=== PATIENT | female | born 1945 | race Caucasian/White ===

== ENCOUNTER → 2016-08-05 | Outpatient (CLI) | payer OTHER, MEDICARE ==
[~2016-08-05] MED LIST: ANSHCCR RE; ARTIOIN2 OPB; BCTCR/30 EXT; BCTROWC NAE; CETI10TA73 PO; CHOL20005 PO; CLC100 PO; CYAN10005 PO; CYCL0.05 OP; CYCL0.052 OPB; FERR1TAB13 PO; FERR325T51 PO; FLUO0.0543 TOP; FURO40TA3 PO; GLC/500 PO; GLC5 PO; GLIP-197 PO; GLIP5TAB3 PO; LDXCR30 TOP; LOPE1TAB PO; LOPETAB PO; LSN5 PO; LSX20 PO; MULT-671 PO; NADO20TA PO; OMEP20CA9 PO; OXYC1CAP5 PO; OXYC1TAB3 PO; PRAM1CRE4 TOP; PSYL55.43 PO; SALI0.657 NAE; VITA400C15 PO; VITAMIN A OP; ZOLE5INJ IV; [UNRECOGNIZED DRUG - CODE] NAE; calcium PO
== END | disposition home or self-care (01) ==
LOC: C.MAMM 10:22
PROVIDERS: ATTEND Internal Medicine
DX: M81.0 Age-related osteoporosis without current pathological fracture (principal)

== ENCOUNTER → 2017-04-15 | Outpatient (CLI) | payer OTHER, MEDICARE ==
[~2017-04-15] MED LIST changes: -BCTROWC NAE; -CHOL20005 PO; -CYAN10005 PO; -MULT-671 PO; -OXYC1TAB3 PO; -PSYL55.43 PO; -VITA400C15 PO
--- NOTE | 2017-04-15 09:07 | DIAGNOSTIC IMAGING REPORT ---
ABDOMINAL ULTRASOUND, RIGHT UPPER QUADRANT HISTORY: Cirrhosis of liver. COMPARISON: Right upper quadrant ultrasound April 10, 2016. FINDINGS: Coarsening of hepatic echotexture and nodularity liver surface is indicative of cirrhosis. No suspicious hepatic lesions are identified by sonography. The common bile duct measures 7 mm in caliber following cholecystectomy. This is unchanged. A 1 cm cystic lesion within the pancreatic body is also unchanged from prior exam. There is no right hydronephrosis. IMPRESSION: 1. Cirrhosis. No hepatic lesions identified by sonography. 2. No change since prior exam of April 10, 2016. 3. Stable 1 cm cystic lesion within the pancreatic body. Electronically signed by: Fredy Jaquez M.D. 04/15/2017 9:06 AM Dictated Date/Time: 04/15/2017 8:54 AM
== END | disposition home or self-care (01) ==
LOC: C.ULTR 08:29
PROVIDERS: ATTEND Internal Medicine Gastroenterology
DX: K74.60 Unspecified cirrhosis of liver (principal); K86.9 Disease of pancreas, unspecified

== ENCOUNTER 2017-04-23 12:02 | Inpatient (IN) | payer OTHER, MEDICARE ==
[~2017-04-23] VITALS: Ht 149.9 cm; Wt 58.5 kg
[~2017-04-23 12:02] MED LIST changes: -BCTCR/30 EXT; -CYCL0.052 OPB; -FERR1TAB13 PO; -GLC5 PO; -LDXCR30 TOP; -LOPE1TAB PO; -LSX20 PO; -OXYC1CAP5 PO
[2017-04-23] MEDS ORDERED: LDXCR30 TOP (12:49)
[2017-04-23] MEDS ORDERED: LSX20 PO (12:49)
[2017-04-23] MEDS ORDERED: FERR1TAB13 PO (12:49)
[2017-04-23] MEDS ORDERED: BCTCR/30 EXT (12:49)
[2017-04-23] MEDS ORDERED: OXYC1CAP5 PO (12:49)
[2017-04-23] MEDS ORDERED: LOPE1TAB PO (12:49)
[2017-04-23] MEDS ORDERED: CYCL0.052 OPB (12:49)
[2017-04-23] MEDS ORDERED: GLC5 PO (12:49)
[2017-04-23] MEDS ORDERED: MoRPHine SULFATE 2 MG/ML CARP IV STA ×2 (13:16→15:23)
[2017-04-23] MEDS ORDERED: ONDANSETRON INJ 2 MG/ML 2 ML VIAL IV STA ×2 (13:16→15:23)
--- NOTE | 2017-04-23 14:32 | DIAGNOSTIC IMAGING REPORT ---
CT HEAD WITHOUT CONTRAST (CT) CLINICAL HISTORY: Head pain status post trauma COMPARISON STUDY: 02/23/2010 TECHNIQUE: Axial CT of the brain is performed from the vertex to the skull base. IV contrast was not administered for this examination. A dose lowering technique was utilized adhering to the principles of ALARA. CT DOSE: 638.56 mGycm FINDINGS: No intra or extra-axial mass lesions are visualized. There is no CT evidence of acute cortical infarction. There is no evidence of midline shift. There is no acute hemorrhage. No calvarial fractures are visualized. There are minor white matter hypodensities likely on a small vessel basis. There is no evidence of pathologic ventricular dilatation. There is opacification of the left maxillary sinus. Multiple ethmoid air cells are opacified on the left. There is a sphenoid sinus air-fluid level. There is opacification of the frontal sinuses. IMPRESSION: 1. Pansinus disease 2. No acute intracranial findings. No evidence of acute intracranial hemorrhage. Electronically signed by: Jim Correa M.D. 04/23/2017 2:31 PM Dictated Date/Time: 04/23/2017 2:30 PM
--- NOTE | 2017-04-23 14:46 | DIAGNOSTIC IMAGING REPORT ---
RIGHT KNEE 2 VIEWS CLINICAL HISTORY: Right knee pain status post trauma COMPARISON: None. DISCUSSION: The bones are osteopenic. There is a nondisplaced mildly comminuted patellar fracture. There is a large suprapatellar joint effusion. No tibial fibular or distal femoral fractures are visualized. IMPRESSION: Nondisplaced mildly comminuted patellar fracture. Large suprapatellar joint effusion. Electronically signed by: Jim Correa M.D. 04/23/2017 2:45 PM Dictated Date/Time: 04/23/2017 2:44 PM
--- NOTE | 2017-04-23 14:48 | DIAGNOSTIC IMAGING REPORT ---
FACIAL BONES-MXILLOFAC WITHOUT CLINICAL HISTORY: 71 years-old Female presenting with EVAL FOR TRAUMA. , Acute facial injury. COMPARISON STUDY: CT head of same day, CT maxillofacial 08/13/2012. TECHNIQUE: High-resolution CT scan of the facial bones is performed. Images are reviewed in the axial, sagittal, and coronal planes. IV contrast was not administered for this examination. A dose lowering technique was utilized adhering to the principles of ALARA. CT DOSE: 551.90 mGycm FINDINGS: The mastoid air cells and middle ear cavities are clear. Mild mucosal thickening is seen within the left maxillary sinus. The right maxillary sinus is nearly completely opacified and contains internal high attenuating material with septations. Opacified expanded left ethmoid air cells are seen measuring up to 2.3 x 1.3 cm. There is moderate ethmoid and severe frontal sinus disease. Moderate to severe sphenoid sinus disease is noted with a large air-fluid level of the left sphenoid. Mild mucosal thickening involves the bilateral sphenoethmoidal recesses. There is moderate mucosal thickening of the left frontoethmoidal recess with mild mucosal thickening on the right. Moderate mucosal thickening involves the right maxillary ostiomeatal unit and the left is patent. No Caleb cell or large lalo bullosa identified. No significant nasal septal deviation. Nasopharynx is patent. The airway is patent. Image intracranial structures demonstrate no acute abnormality. There is background cerebral atrophy. There is multilevel advanced intervertebral disc space narrowing and facet arthropathy of the cervical spine is noted. Moderate degenerative changes involve the temporal mandibular joints. The zygomatic arches, maxillary alfonso, pterygoid plates, nasal bone and orbits are intact without acute fracture. Mandible is intact. No acute facial bone fracture or dislocation identified. No significant soft tissue swelling of the face. IMPRESSION: 1. No acute facial bone fracture or dislocation identified. 2. Multifocal sinus disease as above with severe right maxillary and bilateral frontal sinus opacification. High attenuating material with linear septations within the right maxillary sinus suggests inspissated mucosal debris. 3. Multilevel degenerative changes of the cervical spine. The above report was generated using voice recognition software. It may contain grammatical, syntax or spelling errors. Electronically signed by: Kennedy Mary M.D. 04/23/2017 2:46 PM Dictated Date/Time: 04/23/2017 2:38 PM
--- NOTE | 2017-04-23 15:15 | EMERGENCY ROOM VISIT NOTE ---
History Report prepared by Myra: Karyn Albert Under the Supervision of: Dr. Arpan Hamilton M.D. 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 She tripped on the rug and fell forward landing on her face and her right knee and elbow. She fell onto carpet. She was not feeling dizzy or sick before she fell. She initially had a nosebleed, which resolved after a few minutes. The patient has been unable to bear weight on her right leg since the fall. She is complaining of right knee pain that is worsened with any movement. She rates her pain as a 10/10 in severity. The patient denies headache, fevers, visual changes, dental pain, neck pain, back pain, chest pain, shortness of breath, and abdominal pain. She does not take any blood thinners. 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 Pt denies visual changes, dental pain. Review of Systems See HPI for pertinent positives & negatives. A total of 10 systems reviewed and were otherwise negative. Past Medical & Surgical Medical Problems: (1) Acute posterior epistaxis (2) Aortic Valve Disorder (3) Bladder Neoplasm Nos (4) Diabetes (5) Epistaxis (6) Epistaxis (7) Epistaxis (8) Epistaxis (9) Epistaxis (10) Esophageal Reflux (11) Fracture of fifth metacarpal bone (12) Hyperlipidemia Nec/Nos (13) Hypertension (14) Hypertension Nos (15) Osteoporosis Nos (16) Pansinusitis (17) Tricuspid Valve Disease Surgical Problems: (1) History of shoulder replacement (2) Knee Joint Replacement Status (3) Previous back surgery Old medical records were reviewed. Nurse's notes were reviewed and I agree with. Family History Diabetes mellitus FH: bladder cancer FH: heart disease Social History Smoking Status: Never Smoker Alcohol Use: none Marital Status: single Housing Status: lives alone Occupation Status: retired Current/Historical Medications Scheduled Artificial Tear Ointment (Refresh Lacri-Lube), 1 DOSE OPB Q2H Cyclosporine (Ophth) (Restasis), 1 DROP OPB Q12 Ferrous Sulfate (Kp Ferrous Sulfate), 325 MG PO TID Fluocinonide (Lidex 0.05% Cream), 1 APPLN TOP DIRECTED Furosemide (Furosemide), 20 MG PO DAILY Glipizide (Glipizide), 5 MG PO BID Lisinopril (Lisinopril), 5 MG PO QAM Loperamide-Simethicone (Imodium Multi-Symptom Rel), 1 TAB PO HS Metformin Hcl (Glucophage), 500 MG PO BID Mupirocin 2% (Bactroban 2%), 1 APPLN EXT BID Nadolol (Corgard), 20 MG PO QAM Omeprazole (Prilosec), 20 MG PO QAM Scheduled PRN Oxycodone Hcl (Oxycodone Hcl), 5 MG PO Q4H PRN for Pain Pramoxine Hcl-Zinc Oxide (Tronolane), 1 APPLN TOP DAILY PRN for Hemorrhoids Allergies Coded Allergies: Doxycycline (Verified Allergy, Intermediate, RASH, 04/11/17) Tetracycline (Verified Allergy, Intermediate, RASH, 04/11/17) Iodine (Verified Allergy, Unknown, Unknown rxn, 04/11/17) Physical Exam Vital Signs Date Time Temp Pulse Resp B/P (MAP) Pulse Ox O2 Delivery O2 Flow Rate FiO2 04/23/17 18:00 69 17 144/69 95 Room Air 04/23/17 17:00 72 151/78 92 Room Air 04/23/17 16:30 71 18 176/113 92 Room Air 04/23/17 15:30 73 15 188/123 96 Room Air 04/23/17 14:55 72 18 180/101 94 Room Air 04/23/17 14:00 71 14 167/85 96 Room Air 04/23/17 13:30 73 17 183/97 97 Room Air 04/23/17 12:30 73 18 167/103 96 Room Air 04/23/17 12:23 73 19 171/92 96 Room Air 04/23/17 12:09 36.7 72 16 179/71 97 Room Air Physical Exam General: Well developed well nourished non ill appearing older female in no acute distress, breathing comfortably on room air. Normal speech HEENT: Normal cephalic, abrasion to her chin and lip, mid-face is stable. Pupils are equal round and reactive to light. Extraocular movements are intact. Oropharynx is pink with moist mucous membranes. No swelling of the mouth lips or tongue. Neck: Supple with a midline trachea. No meningeal signs or stiffness, no JVD or bruits. No Stridor. Chest: Clear to auscultation bilaterally. No wheezes or rhonchi. No increased work of breathing. Heart: regular rate and rhythm. Abdomen: Soft nontender, nondistended without rebound guarding or rigidity. Extremities: Small abrasion on right elbow. Large amount of swelling to the right knee, worsens with any movement. Spine/Back. Non tender to palpation. No CVA tenderness Skin: Good turgor without rashes. Neurologic exam: Cranial nerves two through 12 are intact. Motor and sensation are intact and symmetrical throughout. Medical Decision & Procedures ER Provider Diagnostic Interpretation: Radiology results as stated below per my review and radiologist interpretation: FACIAL BONES-MXILLOFAC WITHOUT CLINICAL HISTORY: 71 years-old Female presenting with EVAL FOR TRAUMA. , Acute facial injury. COMPARISON STUDY: CT head of same day, CT maxillofacial 08/13/2012. TECHNIQUE: High-resolution CT scan of the facial bones is performed. Images are reviewed in the axial, sagittal, and coronal planes. IV contrast was not administered for this examination. A dose lowering technique was utilized adhering to the principles of ALARA. CT DOSE: 551.90 mGycm FINDINGS: The mastoid air cells and middle ear cavities are clear. Mild mucosal thickening is seen within the left maxillary sinus. The right maxillary sinus is nearly completely opacified and contains internal high attenuating material with septations. Opacified expanded left ethmoid air cells are seen measuring up to 2.3 x 1.3 cm. There is moderate ethmoid and severe frontal sinus disease. Moderate to severe sphenoid sinus disease is noted with a large air-fluid level of the left sphenoid. Mild mucosal thickening involves the bilateral sphenoethmoidal recesses. There is moderate mucosal thickening of the left frontoethmoidal recess with mild mucosal thickening on the right. Moderate mucosal thickening involves the right maxillary ostiomeatal unit and the left is patent. No Caleb cell or large lalo bullosa identified. No significant nasal septal deviation. Nasopharynx is patent. The airway is patent. Image intracranial structures demonstrate no acute abnormality. There is background cerebral atrophy. There is multilevel advanced intervertebral disc space narrowing and facet arthropathy of the cervical spine is noted. Moderate degenerative changes involve the temporal mandibular joints. The zygomatic arches, maxillary alfonso, pterygoid plates, nasal bone and orbits are intact without acute fracture. Mandible is intact. No acute facial bone fracture or dislocation identified. No significant soft tissue swelling of the face. IMPRESSION: 1. No acute facial bone fracture or dislocation identified. 2. Multifocal sinus disease as above with severe right maxillary and bilateral frontal sinus opacification. High attenuating material with linear septations within the right maxillary sinus suggests inspissated mucosal debris. 3. Multilevel degenerative changes of the cervical spine. The above report was generated using voice recognition software. It may contain grammatical, syntax or spelling errors. Electronically signed by: Kennedy Mary M.D. 04/23/2017 2:46 PM Dictated Date/Time: 04/23/2017 2:38 PM RIGHT KNEE 2 VIEWS CLINICAL HISTORY: Right knee pain status post trauma COMPARISON: None. DISCUSSION: The bones are osteopenic. There is a nondisplaced mildly comminuted patellar fracture. There is a large suprapatellar joint effusion. No tibial fibular or distal femoral fractures are visualized. IMPRESSION: Nondisplaced mildly comminuted patellar fracture. Large suprapatellar joint effusion. Electronically signed by: Jim Correa M.D. 04/23/2017 2:45 PM Dictated Date/Time: 04/23/2017 2:[address] HEAD WITHOUT CONTRAST (CT) CLINICAL HISTORY: Head pain status post trauma COMPARISON STUDY: 02/23/2010 TECHNIQUE: Axial CT of the brain is performed from the vertex to the skull base. IV contrast was not administered for this examination. A dose lowering technique was utilized adhering to the principles of ALARA. CT DOSE: 638.56 mGycm FINDINGS: No intra or extra-axial mass lesions are visualized. There is no CT evidence of acute cortical infarction. There is no evidence of midline shift. There is no acute hemorrhage. No calvarial fractures are visualized. There are minor white matter hypodensities likely on a small vessel basis. There is no evidence of pathologic ventricular dilatation. There is opacification of the left maxillary sinus. Multiple ethmoid air cells are opacified on the left. There is a sphenoid sinus air-fluid level. There is opacification of the frontal sinuses. IMPRESSION: 1. Pansinus disease 2. No acute intracranial findings. No evidence of acute intracranial hemorrhage. Electronically signed by: Jim Correa M.D. 04/23/2017 2:31 PM Dictated Date/Time: 04/23/2017 2:30 PM Laboratory Results 04/23/17 13:45 Red Blood Count 3.47, Mean Corpuscular Volume 94.5, Mean Corpuscular Hemoglobin 33.1, Mean Corpuscular Hemoglobin Concent 35.1, Mean Platelet Volume 11.5, Neutrophils (%) (Auto) 87.2, Lymphocytes (%) (Auto) 6.2, Monocytes (%) (Auto) 5.3, Eosinophils (%) (Auto) 0.6, Basophils (%) (Auto) 0.4, Neutrophils # (Auto) 5.93, Lymphocytes # (Auto) 0.42, Monocytes # (Auto) 0.36, Eosinophils # (Auto) 0.04, Basophils # (Auto) 0.03 04/23/17 13:45 Test 04/23/17 13:45 White Blood Count 6.80 K/uL (4.8-10.8) Red Blood Count 3.47 M/uL (4.2-5.4) Hemoglobin 11.5 g/dL (12.0-16.0) Hematocrit 32.8 % (37-47) Mean Corpuscular Volume 94.5 fL (80-100) Mean Corpuscular Hemoglobin 33.1 pg (25-34) Mean Corpuscular Hemoglobin Concent 35.1 g/dl (32-36) Platelet Count 137 K/uL (130-400) Mean Platelet Volume 11.5 fL (7.4-10.4) Neutrophils (%) (Auto) 87.2 % Lymphocytes (%) (Auto) 6.2 % Monocytes (%) (Auto) 5.3 % Eosinophils (%) (Auto) 0.6 % Basophils (%) (Auto) 0.4 % Neutrophils # (Auto) 5.93 K/uL (1.4-6.5) Lymphocytes # (Auto) 0.42 K/uL (1.2-3.4) Monocytes # (Auto) 0.36 K/uL (0.11-0.59) Eosinophils # (Auto) 0.04 K/uL (0-0.5) Basophils # (Auto) 0.03 K/uL (0-0.2) RDW Standard Deviation 52.9 fL (36.4-46.3) RDW Coefficient of Variation 15.5 % (11.5-14.5) Immature Granulocyte % (Auto) 0.3 % Immature Granulocyte # (Auto) 0.02 K/uL (0.00-0.02) Anion Gap 8.0 mmol/L (3-11) Est Creatinine Clear Calc Drug Dose 52.7 ml/min Estimated GFR () 93.2 Estimated GFR (Non- 80.4 BUN/Creatinine Ratio 20.2 (10-20) Calcium Level 8.9 mg/dl (8.5-10.1) Total Bilirubin 0.9 mg/dl (0.2-1) Direct Bilirubin 0.2 mg/dl (0-0.2) Aspartate Amino Transf (AST/SGOT) 38 U/L (15-37) Alanine Aminotransferase (ALT/SGPT) 27 U/L (12-78) Alkaline Phosphatase 96 U/L (45-117) Total Protein 8.8 gm/dl (6.4-8.2) Albumin 3.0 gm/dl (3.4-5.0) Lipase 223 U/L (73-393) Laboratory studies as stated above per my review. Medications Administered Medications (Trade) Dose Ordered Sig/Carlos Route Start Time Stop Time Status Last Admin Dose Admin Ondansetron HCl (Zofran Inj) 4 mg NOW STAT IV 04/23/17 13:16 04/23/17 13:19 DC 04/23/17 13:50 4 MG Morphine Sulfate (MoRPHine SULFATE INJ) 2 mg NOW STAT IV 04/23/17 13:16 04/23/17 13:19 DC 04/23/17 13:51 2 MG Ondansetron HCl (Zofran Inj) 4 mg NOW STAT IV 04/23/17 15:23 04/23/17 15:25 DC 04/23/17 15:35 4 MG Morphine Sulfate (MoRPHine SULFATE INJ) 2 mg NOW STAT IV 04/23/17 15:23 04/23/17 15:25 DC 04/23/17 15:35 2 MG ECG Indication: other Rate (beats per minute): 71 Rhythm: normal sinus Findings: no acute ischemic change, no ectopy, other (poor R-wave progression) Comparison ECG Date: 08/07/2011 Change: no significant change ED Course 1302: Past medical records reviewed. The patient was evaluated in room C7, and a complete history and physical examination were performed. 1316: Morphine sulfate 2 mg IV, Zofran 4 mg IV 1522: I reassessed the patient at this time. She is still having pain. I discussed the results and treatment plan with the patient and her son. I answered all pertaining questions that they had. They expressed understanding and verbalized agreement. 1523: Morphine sulfate 2 mg IV, Zofran 4 mg IV 1539: I spoke with Dr. Lagos of orthopedics regarding the patient's treatment plan. He recommended a knee immobilizer. 1604: I spoke with Dr. Dolan. We discussed the patients case. The patient will be evaluated by the [facility] for further management. 1709: I reassessed the patient and she is doing well. Medical Decision Differential diagnoses includes fracture, closed head injury, facial fracture, orthopedic injury, electrolyte or metabolic abnormality. This patient comes in as described above. She was placed in room C7. She is here for treatment and evaluation of a fall. It sounds as a mechanical fall. She tripped and landed on her knee. She also hit her face and head. She has a small abrasion right elbow. She has a normal neurologic exam. She is not on blood thinners. Blood work was obtained. She is diabetic but her blood sugar is only mildly elevated. Has no evidence suggest acute diabetic emergency. CAT scan of her head and face were unremarkable. She does have a comminuted nondisplaced right patellar fracture. She is a large hemarthrosis as well. A knee immobilizer was applied. While she was here , she received IV morphine and IV Zofran twice this seemed to help. I did discuss case with Dr. Lagos and he felt that most likely this is been be nonoperative but they could see her in the hospital in consultation. I don't think the patient can go home at this point as she is unable care for self with her acute patella/knee fracture. She is unable ambulate adequately She may need to stay in rehabilitation. I did consult Dr. Martini who saw her in the ER and will admit her for these measures. Medication Reconcilliation Current Medication List: was personally reviewed by me Blood Pressure Screening Patient's blood pressure: Elevated blood pressure Blood pressure disposition: Elevated BP felt to be situational Consults Time Called: 1536 Consulting Physician: Dr. Lagos Returned Call: [phone] Lagos of orthopedics regarding the patient's treatment plan. He recommended a knee immobilizer. Additional Consults: Time Called: 1601 Consulted Physician: Dr. Dolan Returned Call: [phone] Additional Comments: I spoke with Dr. Dolan. We discussed the patients case. The patient will be evaluated by the [facility] for further management. Impression Primary Impression: Patella fracture Additional Impressions: Facial contusion Closed head injury Scribe Attestation The scribe's documentation has been prepared under my direction and personally reviewed by me in its entirety. I confirm that the note above accurately reflects all work, treatment, procedures, and medical decision making performed by me. Departure Information Dispostion Being Evaluated By Hospitalist Referrals No Doctor, Assigned (PCP) Patient Instructions My [facility] Problem Qualifiers Primary Impression: Patella fracture Encounter type: initial encounter Fracture type: closed Laterality: right Additional Impressions: Facial contusion Encounter type: initial encounter Qualified Codes: S00.83XA - Contusion of other part of head, initial encounter Closed head injury Encounter type: initial encounter Qualified Codes: S09.90XA - Unspecified injury of head, initial encounter
[2017-04-23 16:25] LABS: BASO % 0.4 %; BASO ABS # 0.03 K/uL (0-0.2); COMPLETE YES; EOS % 0.6 %; HEMATOCRIT 32.8 % (37-47); IG% 0.3 %; LYMPH % 6.2 %; LYMPH ABS # 0.42 K/uL (1.2-3.4); MEAN CELL VOLUME 94.5 fL (80-100); MEAN CORPUSCULAR HEMOGLOBIN 33.1 pg (25-34); MEAN CORPUSCULAR HGB CONC 35.1 g/dl (32-36); MEAN PLATELET VOLUME 11.5 fL (7.4-10.4); MONO % 5.3 %; NEUT % 87.2 %; PLATELET COUNT 137 K/uL (130-400); RED BLOOD COUNT 3.47 M/uL (4.2-5.4)
[2017-04-23 16:34] LABS: BUN/CREATININE RATIO 20.2 (10-20); CALCIUM 8.9 mg/dl (8.5-10.1); CREATININE 0.74 mg/dl (0.60-1.20); POTASSIUM 4.8 mmol/L (3.5-5.1)
[2017-04-23] MEDS ORDERED: MoRPHine SULFATE 2 MG/ML CARP IV PRN (17:00)
[2017-04-23] MEDS ORDERED: ACETAMINOPHEN 325 MG TAB PO PRN (17:00)
--- NOTE | 2017-04-23 19:00 | History and Physical ---
History & Physical Date & Time of Service: Apr 23, 2017 at 19:00 Chief Complaint: Hurt Rt Knee, Bloody Mouth Primary Care Physician: Rafal Steinberg MD History of Present Illness Source: patient, family The patient is a 71-year-old female presents to the emergency department with complaint of right knee pain after a fall that occurred about 1-1/2 hours prior to arrival. The fall occurred after she tripped on a rug and fell forward, landing on a carpet and hitting her face, her right knee and right elbow. She had a transient nosebleed resolved after a few minutes. She has not been able to bear weight on her right leg since the fall. Past Medical/Surgical History Medical Problems: (1) Acute posterior epistaxis Status: Resolved (2) Aortic Valve Disorder Status: Chronic (3) Bladder Neoplasm Nos Status: Resolved (4) Diabetes Status: Chronic (5) Epistaxis Status: Resolved (6) Epistaxis Status: Resolved (7) Epistaxis Status: Resolved (8) Epistaxis Status: Resolved (9) Epistaxis Status: Resolved (10) Fracture of fifth metacarpal bone Status: Resolved (11) Hyperlipidemia Nec/Nos Status: Chronic (12) Hypertension Status: Chronic (13) Tricuspid Valve Disease Status: Chronic Surgical Problems: (1) History of shoulder replacement Status: Resolved (2) Previous back surgery Status: Resolved Family History Diabetes mellitus FH: bladder cancer FH: heart disease Social History Smoking Status: Never Smoker Smokeless Tobacco Use: No Alcohol Use: none Drug Use: none Marital Status: single Housing status: lives alone Occupational Status: retired Immunizations History of Influenza Vaccine: Yes Influenza Vaccine Date: Sep 27, 2009 History of Tetanus Vaccine?: No History of Pneumococcal: No Pneumococcal Date: Sep 27, 2009 History of Hepatitis B Vaccine: No Multi-Drug Resistant Organisms History of MDRO: No Allergies Coded Allergies: Doxycycline (Verified Allergy, Intermediate, RASH, 04/11/17) Tetracycline (Verified Allergy, Intermediate, RASH, 04/11/17) Iodine (Verified Allergy, Unknown, Unknown rxn, 04/11/17) Home Medications Scheduled Artificial Tear Ointment (Refresh Lacri-Lube), 1 DOSE OPB Q2H Cyclosporine (Ophth) (Restasis), 1 DROP OPB Q12 Ferrous Sulfate (Kp Ferrous Sulfate), 325 MG PO TID Fluocinonide (Lidex 0.05% Cream), 1 APPLN TOP DIRECTED Furosemide (Furosemide), 20 MG PO DAILY Glipizide (Glipizide), 5 MG PO BID Lisinopril (Lisinopril), 5 MG PO QAM Loperamide-Simethicone (Imodium Multi-Symptom Rel), 1 TAB PO HS Metformin Hcl (Glucophage), 500 MG PO BID Mupirocin 2% (Bactroban 2%), 1 APPLN EXT BID Nadolol (Corgard), 20 MG PO QAM Omeprazole (Prilosec), 20 MG PO QAM Scheduled PRN Oxycodone Hcl (Oxycodone Hcl), 5 MG PO Q4H PRN for Pain Pramoxine Hcl-Zinc Oxide (Tronolane), 1 APPLN TOP DAILY PRN for Hemorrhoids Review of Systems The patient denies chest pain, palpitations, shortness of breath, cough, lower extremity swelling, vision change, hearing change, fevers, chills, sweats, weight change, fatigue, nausea, vomiting, diarrhea or constipation, abdominal pain, pelvic pain, blood in urine or stool, dysuria, urinary frequency or urgency, lightheadedness, dizziness, headache, memory loss, rash, generalized arthralgias or myalgias, back or neck pain, night sweats, or allergy symptoms. The review of systems is otherwise negative other than for that already noted above, and at least 10 systems have been reviewed. Physical Exam Vital Signs Date Time Temp Pulse Resp B/P (MAP) Pulse Ox O2 Delivery O2 Flow Rate FiO2 04/23/17 18:00 69 17 144/69 95 Room Air 04/23/17 17:00 72 151/78 92 Room Air 04/23/17 16:30 71 18 176/113 92 Room Air 04/23/17 15:30 73 15 188/123 96 Room Air 04/23/17 14:55 72 18 180/101 94 Room Air 04/23/17 14:00 71 14 167/85 96 Room Air 04/23/17 13:30 73 17 183/97 97 Room Air 04/23/17 12:30 73 18 167/103 96 Room Air 04/23/17 12:23 73 19 171/92 96 Room Air 04/23/17 12:09 36.7 72 16 179/71 97 Room Air The patient is awake, well-developed and adequately nourished, alert and oriented 3, normocephalic and atraumatic, lying in bed and in no acute distress. HEENT--PERRL, EOMI, mucous membranes and oropharynx dry. Neck--supple, no JVD or bruits, thyroid normal, trachea midline, no adenopathy. Heart--normal S1 and S2, no extra beats, no murmurs, rubs or gallops. Lungs--clear bilaterally with good air movement, no respiratory distress, no accessory muscle use. Abdomen--normal bowel sounds and soft, nontender and nondistended, no hernias or masses, no organomegaly. Extremities--no cyanosis, clubbing or edema. There are good distal pulses b/l. Dermatologic--normal skin turgor, normal color, warm and dry, no abnormal lymph nodes, no rash. Neurologic--cranial nerves II through XII grossly intact. Rheumatologic--right leg in immobilizer. Psychiatric--normal affect. Diagnostics Laboratory Results Results Past 24 Hours Test 04/23/17 13:45 Range/Units White Blood Count 6.80 4.8-10.8 K/uL Red Blood Count 3.47 4.2-5.4 M/uL Hemoglobin 11.5 12.0-16.0 g/dL Hematocrit 32.8 37-47 % Mean Corpuscular Volume 94.5 80-100 fL Mean Corpuscular Hemoglobin 33.1 25-34 pg Mean Corpuscular Hemoglobin Concent 35.1 32-36 g/dl Platelet Count 137 130-400 K/uL Mean Platelet Volume 11.5 7.4-10.4 fL Neutrophils (%) (Auto) 87.2 % Lymphocytes (%) (Auto) 6.2 % Monocytes (%) (Auto) 5.3 % Eosinophils (%) (Auto) 0.6 % Basophils (%) (Auto) 0.4 % Neutrophils # (Auto) 5.93 1.4-6.5 K/uL Lymphocytes # (Auto) 0.42 1.2-3.4 K/uL Monocytes # (Auto) 0.36 0.11-0.59 K/uL Eosinophils # (Auto) 0.04 0-0.5 K/uL Basophils # (Auto) 0.03 0-0.2 K/uL RDW Standard Deviation 52.9 36.4-46.3 fL RDW Coefficient of Variation 15.5 11.5-14.5 % Immature Granulocyte % (Auto) 0.3 % Immature Granulocyte # (Auto) 0.02 0.00-0.02 K/uL Sodium Level 130 136-145 mmol/L Potassium Level 4.8 3.5-5.1 mmol/L Chloride Level 97 98-107 mmol/L Carbon Dioxide Level 25 21-32 mmol/L Anion Gap 8.0 3-11 mmol/L Blood Urea Nitrogen 15 7-18 mg/dl Creatinine 0.74 0.60-1.20 mg/dl Est Creatinine Clear Calc Drug Dose 52.7 ml/min Estimated GFR () 93.2 Estimated GFR (Non- 80.4 BUN/Creatinine Ratio 20.2 10-20 Random Glucose 132 70-99 mg/dl Calcium Level 8.9 8.5-10.1 mg/dl Total Bilirubin 0.9 0.2-1 mg/dl Direct Bilirubin 0.2 0-0.2 mg/dl Aspartate Amino Transf (AST/SGOT) 38 15-37 U/L Alanine Aminotransferase (ALT/SGPT) 27 12-78 U/L Alkaline Phosphatase 96 45-117 U/L Total Protein 8.8 6.4-8.2 gm/dl Albumin 3.0 3.4-5.0 gm/dl Lipase 223 73-393 U/L Diagnostic Radiology Patient Name: CANDI CORADO Unit Number: [id number] Dictated: 04/23/171437 Transcribed: 04/23/171437 [employer]visor Printed Date/Time: [~ rep prt dt]/[~ rep prt tm] [~ rep ct labl] - [~ rep ct ivnm] [facility] [place] [address] Dictated: 04/23/171437 Transcribed: 04/23/171437 [employer]visor Printed Date/Time: [~ rep prt dt]/[~ rep prt tm] [~ rep ct labl] - [~ rep ct ivnm] [~ rep ct add3]] FACIAL BONES-MXILLOFAC WITHOUT CLINICAL HISTORY: 71 years-old Female presenting with EVAL FOR TRAUMA. , Acute facial injury. COMPARISON STUDY: CT head of same day, CT maxillofacial 08/13/2012. TECHNIQUE: High-resolution CT scan of the facial bones is performed. Images are reviewed in the axial, sagittal, and coronal planes. IV contrast was not administered for this examination. A dose lowering technique was utilized adhering to the principles of ALARA. CT DOSE: 551.90 mGycm FINDINGS: The mastoid air cells and middle ear cavities are clear. Mild mucosal thickening is seen within the left maxillary sinus. The right maxillary sinus is nearly completely opacified and contains internal high attenuating material with septations. Opacified expanded left ethmoid air cells are seen measuring up to 2.3 x 1.3 cm. There is moderate ethmoid and severe frontal sinus disease. Moderate to severe sphenoid sinus disease is noted with a large air-fluid level of the left sphenoid. Mild mucosal thickening involves the bilateral sphenoethmoidal recesses. There is moderate mucosal thickening of the left frontoethmoidal recess with mild mucosal thickening on the right. Moderate mucosal thickening involves the right maxillary ostiomeatal unit and the left is patent. No Caleb cell or large lalo bullosa identified. No significant nasal septal deviation. Nasopharynx is patent. The airway is patent. Image intracranial structures demonstrate no acute abnormality. There is background cerebral atrophy. There is multilevel advanced intervertebral disc space narrowing and facet arthropathy of the cervical spine is noted. Moderate degenerative changes involve the temporal mandibular joints. The zygomatic arches, maxillary alfonso, pterygoid plates, nasal bone and orbits are intact without acute fracture. Mandible is intact. No acute facial bone fracture or dislocation identified. No significant soft tissue swelling of the face. IMPRESSION: 1. No acute facial bone fracture or dislocation identified. 2. Multifocal sinus disease as above with severe right maxillary and bilateral frontal sinus opacification. High attenuating material with linear septations within the right maxillary sinus suggests inspissated mucosal debris. 3. Multilevel degenerative changes of the cervical spine. The above report was generated using voice recognition software. It may contain grammatical, syntax or spelling errors. Electronically signed by: Kennedy Mary M.D. 04/23/2017 2:46 PM Dictated Date/Time: 04/23/2017 2:38 PM The status of this report is Signed. Draft = Not yet reviewed or approved by Radiologist. Signed = Reviewed and approved by Radiologist. <AttendingPhy></AttendingPhy> <FamilyPhy>Rafal Steinberg MD</FamilyPhy> < PrimaryPhy>Rafal Steinberg MD</PrimaryPhy> <UnitNumber>[id number]</UnitNumber > <VisitNumber>[id number]</VisitNumber> <PatientName>CANDI CORADO</ PatientName> <DateOfBirth>1945</DateOfBirth> <Location>[facility]</Location> < ServiceDate>04/23/17</ServiceDate> <MNE>ESINDI</MNE> <OrderingPhy>Arpan Hamilton M.D.</OrderingPhy> <OrderingPhyMNE>f rep ord dr ellis</OrderingPhyMNE> < DictatingPhyMNE>f rep dict dr ellis</DictatingPhyMNE> <CCListMNE>f rep ct mne</ CCListMNE> <AdmittingPhyMNE>f pt admit dr ellis</AdmittingPhyMNE> <AttendingPhyMNE >f pt attend dr ellis</AttendingPhyMNE> <ConsultingPhyMNE>f pt consult dr ellis</ConsultingPhyMNE> <FamilyPhyMNE>f pt fam dr ellis</FamilyPhyMNE> <OtherPhyMNE>f pt other dr ellis</OtherPhyMNE> < PrimaryPhyMNE>f pt prim care dr ellis</PrimaryPhyMNE> <ReferringPhyMNE>f pt referring dr ellis</ReferringPhyMNE> Patient Name: CANDI CORADO Unit Number: [id number] Dictated: 04/23/171443 Transcribed: 04/23/171443 ARG Printed Date/Time: [~ rep prt dt]/[~ rep prt tm] [~ rep ct labl] - [~ rep ct ivnm] [facility] [place] [address] Dictated: 04/23/171443 Transcribed: 04/23/171443 ARG Printed Date/Time: [~ rep prt dt]/[~ rep prt tm] [~ rep ct labl] - [~ rep ct ivnm] RIGHT KNEE 2 VIEWS CLINICAL HISTORY: Right knee pain status post trauma COMPARISON: None. DISCUSSION: The bones are osteopenic. There is a nondisplaced mildly comminuted patellar fracture. There is a large suprapatellar joint effusion. No tibial fibular or distal femoral fractures are visualized. IMPRESSION: Nondisplaced mildly comminuted patellar fracture. Large suprapatellar joint effusion. Electronically signed by: Jim Correa M.D. 04/23/2017 2:45 PM Dictated Date/Time: 04/23/2017 2:44 PM The status of this report is Signed. Draft = Not yet reviewed or approved by Radiologist. Signed = Reviewed and approved by Radiologist. <AttendingPhy></AttendingPhy> <FamilyPhy>Rafal Steinberg MD</FamilyPhy> < PrimaryPhy>Rafal Steinberg MD</PrimaryPhy> <UnitNumber>[id number]</UnitNumber > <VisitNumber>[id number]</VisitNumber> <PatientName>IRVIN CORADOLAZARO Hinojosa</ PatientName> <DateOfBirth>1945</DateOfBirth> <Location>[facility]</Location> < ServiceDate>04/23/17</ServiceDate> <MNE>ESINDI</MNE> <OrderingPhy>Arpan Hamilton M.D.</OrderingPhy> <OrderingPhyMNE>f rep ord dr ellis</OrderingPhyMNE> < DictatingPhyMNE>f rep dict dr ellis</DictatingPhyMNE> <CCListMNE>f rep ct mne</ CCListMNE> <AdmittingPhyMNE>f pt admit dr ellis</AdmittingPhyMNE> <AttendingPhyMNE >f pt attend dr ellis</AttendingPhyMNE> <ConsultingPhyMNE>f pt consult dr ellis</ConsultingPhyMNE> <FamilyPhyMNE>f pt fam dr ellis</FamilyPhyMNE> <OtherPhyMNE>f pt other dr ellis</OtherPhyMNE> < PrimaryPhyMNE>f pt prim care dr ellis</PrimaryPhyMNE> <ReferringPhyMNE>f pt referring dr ellis</ReferringPhyMNE> Patient Name: CANDI CORADO Unit Number: [id number] Dictated: 04/23/171429 Transcribed: 04/23/171429 ARG Printed Date/Time: [~ rep prt dt]/[~ rep prt tm] [~ rep ct labl] - [~ rep ct ivnm] [facility] [place] [address] Dictated: 04/23/171429 Transcribed: 04/23/171429 ARG Printed Date/Time: [~ rep prt dt]/[~ rep prt tm] [~ rep ct labl] - [~ rep ct ivnm] CT HEAD WITHOUT CONTRAST (CT) CLINICAL HISTORY: Head pain status post trauma COMPARISON STUDY: 02/23/2010 TECHNIQUE: Axial CT of the brain is performed from the vertex to the skull base. IV contrast was not administered for this examination. A dose lowering technique was utilized adhering to the principles of ALARA. CT DOSE: 638.56 mGycm FINDINGS: No intra or extra-axial mass lesions are visualized. There is no CT evidence of acute cortical infarction. There is no evidence of midline shift. There is no acute hemorrhage. No calvarial fractures are visualized. There are minor white matter hypodensities likely on a small vessel basis. There is no evidence of pathologic ventricular dilatation. There is opacification of the left maxillary sinus. Multiple ethmoid air cells are opacified on the left. There is a sphenoid sinus air-fluid level. There is opacification of the frontal sinuses. IMPRESSION: 1. Pansinus disease 2. No acute intracranial findings. No evidence of acute intracranial hemorrhage. Electronically signed by: Jim Correa M.D. 04/23/2017 2:31 PM Dictated Date/Time: 04/23/2017 2:30 PM The status of this report is Signed. Draft = Not yet reviewed or approved by Radiologist. Signed = Reviewed and approved by Radiologist. <AttendingPhy></AttendingPhy> <FamilyPhy>Rafal Steinberg MD</FamilyPhy> < PrimaryPhy>Rafal Steinberg MD</PrimaryPhy> <UnitNumber>[id number]</UnitNumber > <VisitNumber>[id number]</VisitNumber> <PatientName>CANDI CORADO</ PatientName> <DateOfBirth>1945</DateOfBirth> <Location>[facility]</Location> < ServiceDate>04/23/17</ServiceDate> <MNE>ESINDI</MNE> <OrderingPhy>Arpan Hamilton M.D.</OrderingPhy> <OrderingPhyMNE>f rep ord dr ellis</OrderingPhyMNE> < DictatingPhyMNE>f rep dict dr ellis</DictatingPhyMNE> <CCListMNE>f rep ct caleb</ CCListMNE> <AdmittingPhyMNE>f pt admit dr ellis</AdmittingPhyMNE> <AttendingPhyMNE >f pt attend dr ellis</AttendingPhyMNE> <ConsultingPhyMNE>f pt consult dr ellis</ConsultingPhyMNE> <FamilyPhyMNE>f pt fam dr ellis</FamilyPhyMNE> <OtherPhyMNE>f pt other dr ellis</OtherPhyMNE> < PrimaryPhyMNE>f pt prim care dr ellis</PrimaryPhyMNE> <ReferringPhyMNE>f pt referring dr ellis</ReferringPhyMNE> EKG EKG shows normal sinus rhythm at 71 bpm, possible old anteroseptal NC, no change compared to 08/07/2011 Impression Assessment and Plan Right nondisplaced comminuted patellar fracture/right knee effusion-- The patient will be admitted to the medical surgical floor with knee immobilizer. Consult orthopedics/PT/OT/executive secretary social welfare. Tylenol for mild pain, [place] for moderate pain, and morphine IV for severe pain Pansinusitis-- Placed on ceftriaxone 1 g IV daily and levofloxacin 500 mg IV daily. Hypertension-- Continue nadolol, lisinopril Hold furosemide. Diabetes mellitus-- Hold metformin. Reduce glipizide from 5 to 2.5 mg by mouth twice a day. Place on Accu-Cheks before meals and at bedtime with NovoLog coverage per scale. GERD-- Change omeprazole to pantoprazole. Next Dry eye-- Continue Restasis and refresh Lacri-Lube Level of Care Med/Surg Advanced Directives Existing Advance Directive: No Existing Living Will: No Existing Power of Planograph Operator: No Resuscitation Status FULL NO CARDIOVERSION VTE Prophylaxis VTE Risk Assessment Done? Y/N: Yes Risk Level: Moderate Given or contraindicated: Enoxaparin (Lovenox)SQ, SCD's
[2017-04-23 19:20] VITALS: BP 159/71; PULSE 69; TEMP 36.5; O2SAT 94; Ht 149.9 cm; Wt 58.5 kg
[2017-04-23 19:55] VITALS: O2SAT 94
[2017-04-23] MEDS: OXYCODONE HCL IR 5 MG TAB (IMMEDIATE RELEASE) PO PRN (20:14)
[2017-04-23] MEDS ORDERED: LOPERAMIDE PO SCH (21:00)
[2017-04-23] MEDS ORDERED: SIMETHICONE PO SCH (21:00)
[2017-04-23] MEDS: CEFTRIAXONE SOD INJ 1 GM in DEXTROSE 5% ADD-VANTAGE 50ML 50 ML IV SCH (21:13)
[2017-04-23] MEDS: GUAIFENESIN 600 MG TABCR PO SCH (21:13)
[2017-04-23] MEDS: LOPERAMIDE HCL 2 MG CAP PO SCH (21:13)
[2017-04-23] MEDS: MUPIROCIN 2% OINT 22 GM TUBE EXT SCH (21:54)
[2017-04-23] MEDS: SIMETHICONE 80 MG CHEW PO SCH (21:55)
[2017-04-23] MEDS: ENOXAPARIN 30 MG/0.3 ML SYR SQ SCH (22:01)
[2017-04-23] MEDS: LEVOFLOXACIN / D5W 500 MG in PREMIXED IN D5W 100 ML IV SCH (22:42)
[2017-04-23 22:48] VITALS: BP 161/75; PULSE 73; TEMP 36.4; O2SAT 95
[2017-04-24] MEDS: ONDANSETRON INJ 2 MG/ML 2 ML VIAL IV PRN ×4 (01:28→19:22)
[2017-04-24 06:56] VITALS: BP 173/75; PULSE 77; TEMP 36.3; O2SAT 96
[2017-04-24 08:00] VITALS: BP 168/76; PULSE 77
--- NOTE | 2017-04-24 08:24 | CONSULTATION REPORT ---
DATE OF CONSULTATION: 04/24/2017 REASON FOR CONSULT: Right patellar fracture. HISTORY OF PRESENT ILLNESS: The patient is a 71-year-old white female known to our practice who states that yesterday evening she was ambulating in her home and her shoe caught on the carpet and she lost her balance and fell straightforward. She states that she had pain in her knee and she also had hit her face on the ground as well. She denies losing consciousness. She denies any shortness of breath, chest pain or lightheadedness prior to or after the fall. She was brought to the emergency room where she was seen by the staff. X-rays were taken and it was found that she had a patellar fracture of the right patella. She was admitted by the [facility] and we have been asked to see her for patellar fracture. PAST MEDICAL HISTORY: Aortic valve disorder, history of bladder CA in the past, diabetes mellitus, hyperlipidemia, hypertension, history of epistaxis. PAST SURGICAL HISTORY: Hysterectomy, lumbar decompression surgery for bladder cancer. FAMILY HISTORY: Diabetes mellitus, bladder cancer and heart disease. SOCIAL HISTORY: The patient lives alone, is a nonsmoker and does not use alcohol. MEDICATIONS: Artificial tears tear ointment 1 dose OPB q. 2 hours, cyclosporine 1 drop OPB q.12 hours, ferrous sulfate 325 mg p.o. t.i.d., Lidex cream 1 application topically as directed, furosemide 20 mg p.o. daily, glipizide 5 mg p.o. b.i.d., lisinopril 5 mg p.o. q.a.m., Imodium 1 tab p.o. at bedtime, metformin 500 mg p.o. b.i.d., Bactroban 1 application externally b.i.d., nadolol 20 mg p.o. q.a.m., omeprazole 20 mg p.o. q.a.m., oxycodone 5 mg p.o. q. 4 hours p.r.n. and Tronolane 1 application topical daily p.r.n. for hemorrhoids. ALLERGIES: DOXYCYCLINE, IODINE AND TETRACYCLINE. REVIEW OF SYSTEMS: As per admitting history and physical. PHYSICAL EXAMINATION: GENERAL: The patient is a 71-year-old white female who appears her stated. She is pleasant and cooperative and in no acute distress, alert and oriented to person and place. EXTREMITIES: On examination of her right lower extremity an immobilizer has been placed on her right knee and is removed for exam. She has some mild swelling of the knee itself and there is no glaring step offs or deformity to the patella at this time. No overt areas of ecchymosis. She is tender on palpation over the patella itself. Joint effusion is noted likely due to fracture. She denies tenderness of the tibia going distally into the ankle and she has no hip pain at this point in time on the right lower extremity and is nontender over the femur itself. Left lower extremity is essentially benign and range of motion is within normal limits and is nontender. She has some decreased range of motion of the left shoulder due to DJD and right shoulder essentially within normal limits without discomfort. There is no gross motor or sensory loss of her extremities other than her knee due to effusion and fracture of the patella. ASSESSMENT: Right minimally displaced patellar fracture. PLAN: At this point in time we will put her in an immobilizer and leaver her in an immobilizer, weightbearing as tolerated. This is not a surgical issue at this time and she will be treated conservatively. She can be up weightbearing as tolerated with the immobilizer on. She may remove for bathing and while her leg is in full extension while at rest just to relieve her from the pressure of the immobilizer at times. She will likely need to use a walker for ambulation initially. The patient states that she is scheduled for shoulder surgery with Dr. Rosario in the near future which may have to be postponed due to use of walker. Plans will be to start her on PT and OT today to see how she ambulates. She can follow up with Dr. Rosario in 2 weeks in the office. Thank you for this consult. Please call with any questions.
[2017-04-24] MEDS: FERROUS SULFATE 325 MG TAB PO SCH ×3 (08:30→18:15)
[2017-04-24] MEDS: GUAIFENESIN 600 MG TABCR PO SCH ×2 (10:08→20:37)
[2017-04-24] MEDS: PANTOprazole SOD 40 MG TAB PO SCH (10:09)
[2017-04-24] MEDS: NADOLOL 40 MG TAB PO SCH (10:12)
[2017-04-24] MEDS: LISINOPRIL 5 MG TAB PO SCH (10:12)
[2017-04-24] MEDS: MUPIROCIN 2% OINT 22 GM TUBE EXT SCH ×2 (10:14→20:33)
[2017-04-24] MEDS: CycloSPORINE 0.05% 0.4 ML 30 UDV/BOX OP SCH ×2 (10:16→21:55)
[2017-04-24] MEDS: ENOXAPARIN 30 MG/0.3 ML SYR SQ SCH ×2 (10:18→20:39)
[2017-04-24 11:06] VITALS: BP 161/75; PULSE 78; TEMP 36.5; O2SAT 96
--- NOTE | 2017-04-24 12:52 | Hospitalist Progress Note ---
Hospitalist Progress Note Date of Service Apr 24, 2017. (Idania Ruiz ., PA-C) Subjective Pt evaluation today including: conversation w/ patient, physical exam, lab review, review of studies, review of inpatient medication list Voiding: no voiding problems Patient feeling nauseous this AM due to pain medications. IV Zofran given. Encouraged Tylenol vs narcotics for pain management. Knee pain is currently well controlled. Increases significantly with weightbearing. Fall was mechanical- her shoe caught on the rug and she tripped. States she is unable to bear weight at this time. Thinking she is going to need rehab as she lives alone and is having difficulty with ambulation. Eating and drinking OK. Patient denies any fever, chills, sweats, lightheadedness, dizziness, vision changes, CP, palpitations, edema, SOB, wheezing, cough, abdominal pain, vomiting , diarrhea, urinary symptoms, melena, numbness/tingling, weakness, anxiety/ depression, active bleeding, or new skin discoloration/changes. (Idania Ruiz ., PA-C) Medications Current Inpatient Medications Medications (Trade) Dose Ordered Sig/Carlos Route Start Time Stop Time Status Last Admin Dose Admin Enoxaparin Sodium (Lovenox Inj) 30 mg Q12 SQ 04/23/17 21:00 05/23/17 20:59 04/24/17 10:18 30 MG Acetaminophen (Tylenol Tab) 650 mg Q4H PRN PO 04/23/17 17:00 05/23/17 16:59 Lisinopril (Zestril Tab) 5 mg QAM PO 04/24/17 09:00 05/24/17 08:59 04/24/17 10:12 5 MG Nadolol (Corgard Tab) 20 mg QAM PO 04/24/17 09:00 05/24/17 08:59 04/24/17 10:12 20 MG Miscellaneous Information (Order Awaiting Action) 1 ea QS N/A 04/24/17 00:00 05/24/17 00:00 Ferrous Sulfate (Feosol Tab) 325 mg TIDM PO 04/24/17 08:30 05/24/17 08:29 Mupirocin (Bactroban 2% Oint) 1 appln BID EXT 04/23/17 21:00 05/23/17 20:59 04/24/17 10:14 1 APPLN Pantoprazole Sodium (Protonix Tab) 40 mg QAM PO 04/24/17 09:00 05/24/17 08:59 04/24/17 10:09 40 MG Morphine Sulfate (MoRPHine SULFATE INJ) 2 mg Q2H PRN IV 04/23/17 17:00 05/07/17 16:59 04/23/17 23:46 2 MG Glipizide (Glucotrol Tab) 2.5 mg BIDM PO 04/24/17 08:00 05/24/17 07:59 04/24/17 10:14 2.5 MG Oxycodone HCl (Roxicodone Immediate Rel Tab) 5 mg Q4H PRN PO 04/23/17 17:00 05/07/17 16:59 04/23/17 20:14 5 MG Ceftriaxone Sodium 1 gm/ Dextrose 50 ml @ 100 mls/hr DAILY@2000 IV 04/23/17 20:30 05/03/17 19:59 04/23/17 21:13 100 MLS/HR Levofloxacin 500 mg/Prmx 100 ml @ 100 mls/hr Q24H IV 04/23/17 22:00 05/03/17 21:59 04/23/17 22:42 100 MLS/HR Guaifenesin (Mucinex Contr Rel Tab) 600 mg Q12 PO 04/23/17 21:00 05/23/17 20:59 04/24/17 10:08 600 MG Loperamide HCl (Imodium Cap) 2 mg HS PO 04/23/17 21:00 05/23/17 20:59 04/23/17 21:13 2 MG Simethicone (Mylicon Chew Tab) 80 mg HS PO 04/23/17 21:00 05/23/17 20:59 04/23/17 21:55 80 MG Cyclosporine (Restasis) 1 drops Q12 OP 04/24/17 09:00 05/24/17 08:59 04/24/17 10:16 1 DROPS Ondansetron HCl (Zofran Inj) 4 mg Q4H PRN IV 04/24/17 00:45 05/24/17 00:44 04/24/17 08:12 4 MG Tramadol HCl (Ultram Tab) @ Q4H PRN PO 04/24/17 08:00 10/28/17 07:59 (Idania Ruiz PA-C) Objective Vital Signs Date Time Temp Pulse Resp B/P (MAP) Pulse Ox O2 Delivery O2 Flow Rate FiO2 04/24/17 11:06 36.5 78 18 161/75 (103) 96 Room Air 04/24/17 08:00 77 168/76 (106) 04/24/17 07:55 Room Air 04/24/17 06:56 36.3 77 19 173/75 (107) 96 Room Air 04/23/17 22:48 36.4 73 20 161/75 (103) 95 Room Air 04/23/17 19:55 94 Room Air 04/23/17 19:20 36.5 69 18 159/71 94 Room Air 04/23/17 18:00 69 17 144/69 95 Room Air 04/23/17 17:00 72 151/78 92 Room Air 04/23/17 16:30 71 18 176/113 92 Room Air 04/23/17 15:30 73 15 188/123 96 Room Air 04/23/17 14:55 72 18 180/101 94 Room Air 04/23/17 14:00 71 14 167/85 96 Room Air 04/23/17 13:30 73 17 183/97 97 Room Air (Idania Ruiz PA-C) Physical Exam General Appearance: no apparent distress Eyes: normal inspection, PERRL ENT: TMs normal Neck: supple Respiratory/Chest: lungs clear, no respiratory distress, no accessory muscle use Cardiovascular: regular rate, rhythm Abdomen: normal bowel sounds, non tender, soft Extremities: no pedal edema, no calf tenderness, + pertinent finding (R knee immoblizer) Neurologic/Psychiatric: alert, normal mood/affect, oriented x 3 Skin: normal color, warm/dry, no rash (Idania Ruiz, TREY-C) Laboratory Results Last 24 Hours Test 04/23/17 13:45 04/23/17 20:42 White Blood Count 6.80 K/uL Red Blood Count 3.47 M/uL Hemoglobin 11.5 g/dL Hematocrit 32.8 % Mean Corpuscular Volume 94.5 fL Mean Corpuscular Hemoglobin 33.1 pg Mean Corpuscular Hemoglobin Concent 35.1 g/dl Platelet Count 137 K/uL Mean Platelet Volume 11.5 fL Neutrophils (%) (Auto) 87.2 % Lymphocytes (%) (Auto) 6.2 % Monocytes (%) (Auto) 5.3 % Eosinophils (%) (Auto) 0.6 % Basophils (%) (Auto) 0.4 % Neutrophils # (Auto) 5.93 K/uL Lymphocytes # (Auto) 0.42 K/uL Monocytes # (Auto) 0.36 K/uL Eosinophils # (Auto) 0.04 K/uL Basophils # (Auto) 0.03 K/uL RDW Standard Deviation 52.9 fL RDW Coefficient of Variation 15.5 % Immature Granulocyte % (Auto) 0.3 % Immature Granulocyte # (Auto) 0.02 K/uL Sodium Level 130 mmol/L Potassium Level 4.8 mmol/L Chloride Level 97 mmol/L Carbon Dioxide Level 25 mmol/L Anion Gap 8.0 mmol/L Blood Urea Nitrogen 15 mg/dl Creatinine 0.74 mg/dl Est Creatinine Clear Calc Drug Dose 52.7 ml/min Estimated GFR () 93.2 Estimated GFR (Non- 80.4 BUN/Creatinine Ratio 20.2 Random Glucose 132 mg/dl Calcium Level 8.9 mg/dl Total Bilirubin 0.9 mg/dl Direct Bilirubin 0.2 mg/dl Aspartate Amino Transf (AST/SGOT) 38 U/L Alanine Aminotransferase (ALT/SGPT) 27 U/L Alkaline Phosphatase 96 U/L Total Protein 8.8 gm/dl Albumin 3.0 gm/dl Lipase 223 U/L Bedside Glucose 106 mg/dl (Idania Ruiz, PA-C) Assessment and Plan 71-year-old female presents to the emergency department with complaint of right knee pain after a fall that occurred about 1-1/2 hours prior to arrival. The fall occurred after she tripped on a rug and fell forward, landing on a carpet and hitting her face, her right knee and right elbow. She had a transient nosebleed resolved after a few minutes. She has not been able to bear weight on her right leg since the fall. Right nondisplaced comminuted patellar fracture/right knee effusion: - Admitted to med/surg - Tylenol for mild pain, [place] for moderate pain, and morphine IV for severe pain - Zofran PRN for nausea - Consult orthopedics, appreciate recommendations- immobilizer, weightbearing as tolerated, f/u in 2 weeks w/ Dr. Rosario Pansinusitis: Ceftriaxone 1 g IV daily and Levofloxacin 500 mg IV daily Hypertension: Continue Nadolol 20 mg daily, Lisinopril 5 mg daily, and Lasix 20 mg daily T2DM: - Metformin 500 mg BID held - Glipizide from 5 mg BID - BSG ACHS and sliding insulin scale GERD: Protonix- resume Prilosec at discharge Dry eye: Continue Restasis and refresh Lacri-Lube Code Status: LEVEL I, FULL DVT prophylaxis: Lovenox SQ daily Dispo: From home, lives alone- will likely need placement- PT/OT and social science analyst consulted (Idania Ruiz, PA-C) I confirmed above note with patient after revieweing records and discussing case with APC. General Appearance: no apparent distress Eyes: normal inspection, PERRL ENT: TMs normal Neck: supple Respiratory/Chest: lungs clear, no respiratory distress, no accessory muscle use Cardiovascular: regular rate, rhythm Abdomen: normal bowel sounds, non tender, soft Extremities: no pedal edema, no calf tenderness, + pertinent finding (R knee immoblizer) Neurologic/Psychiatric: alert, normal mood/affect, oriented x 3 Skin: normal color, warm/dry, no rash I agree with current plan. (Benito Mchugh M.D.)
[2017-04-24] MEDS ORDERED: GLUCOSE 10 TABS/TUBE PO PRN (13:00)
[2017-04-24] MEDS ORDERED: GLUCAGON FOR INJ 1 MG VIAL SQ PRN (13:00)
[2017-04-24] MEDS ORDERED: DEXTROSE 50% 50 ML SYR IV PRN (13:00)
[2017-04-24] MEDS ORDERED: GLUCOSE 40% GEL 15 GM TUBE PO PRN (13:00)
[2017-04-24] MEDS: OXYCODONE HCL IR 5 MG TAB (IMMEDIATE RELEASE) PO PRN (13:38)
[2017-04-24] MEDS: ARTIFICIAL TEARS OP OINT 3.5 GM TUBE OPB SCH ×6 (14:03→23:47)
[2017-04-24 15:39] VITALS: BP 136/69; PULSE 65; TEMP 36.7; O2SAT 97
[2017-04-24] MEDS: INSULIN ASPART 100 UNITS/ML 3 ML PEN SC SCH ×2 (19:22→21:51)
[2017-04-24] MEDS: CEFTRIAXONE SOD INJ 1 GM in DEXTROSE 5% ADD-VANTAGE 50ML 50 ML IV SCH (20:33)
[2017-04-24] MEDS: LOPERAMIDE HCL 2 MG CAP PO SCH (20:34)
[2017-04-24] MEDS: SIMETHICONE 80 MG CHEW PO SCH (20:38)
[2017-04-24] MEDS: LEVOFLOXACIN / D5W 500 MG in PREMIXED IN D5W 100 ML IV SCH (21:44)
[2017-04-24 23:35] VITALS: BP 110/64; PULSE 70; TEMP 36.3; O2SAT 97
[2017-04-25] MEDS: ARTIFICIAL TEARS OP OINT 3.5 GM TUBE OPB SCH ×11 (01:30→21:30)
[2017-04-25] MEDS: SODIUM CHLORIDE 0.9% 1000ML 1,000 ML IV SCH ×2 (06:23→16:00)
[2017-04-25 06:51] VITALS: BP 152/89; PULSE 75; TEMP 36.5; O2SAT 98
[2017-04-25] MEDS: FLUOCINONIDE 0.05% CR 15 GM TUBE EXT SCH (09:00)
[2017-04-25] MEDS: CycloSPORINE 0.05% 0.4 ML 30 UDV/BOX OP SCH ×2 (09:35→21:59)
[2017-04-25] MEDS: ENOXAPARIN 30 MG/0.3 ML SYR SQ SCH ×2 (09:37→22:04)
[2017-04-25] MEDS: FERROUS SULFATE 325 MG TAB PO SCH ×3 (09:38→17:34)
[2017-04-25] MEDS: LISINOPRIL 5 MG TAB PO SCH (09:38)
[2017-04-25] MEDS: GUAIFENESIN 600 MG TABCR PO SCH ×2 (09:38→22:02)
[2017-04-25] MEDS: PANTOprazole SOD 40 MG TAB PO SCH (09:38)
[2017-04-25] MEDS: MUPIROCIN 2% OINT 22 GM TUBE EXT SCH ×2 (09:39→21:59)
[2017-04-25] MEDS: NADOLOL 40 MG TAB PO SCH (09:43)
[2017-04-25] MEDS: FUROSEMIDE 20 MG TAB PO SCH (09:44)
[2017-04-25] MEDS: INSULIN ASPART 100 UNITS/ML 3 ML PEN SC SCH ×4 (09:45→22:15)
[2017-04-25 11:23] LABS: BUN/CREATININE RATIO 19.3 (10-20); CALCIUM 7.9 mg/dl (8.5-10.1); CREATININE 0.95 mg/dl (0.60-1.20); POTASSIUM 3.9 mmol/L (3.5-5.1)
[2017-04-25] MEDS: TRAMADOL HCL 50 MG TAB PO PRN ×3 (13:15→22:20)
[2017-04-25 15:20] VITALS: BP 126/61; PULSE 70; TEMP 36.5; O2SAT 94
--- NOTE | 2017-04-25 16:51 | Progress Note ---
Subjective Date of Service: Apr 25, 2017. Subjective Pt evaluation today including: conversation w/ patient, physical exam Johanna reports feeling better. She states that her physical therapy is doing better as she is able to ambulate farther distances. In regards to her hyponatremia, she reports that she has had this for years. And her out patient provider has been monitoring this. Patient denies any nausea vomiting, chest pain, diarrhea. Problem List Medical Problems: (1) Aortic Valve Disorder Status: Chronic (2) Closed head injury Status: Acute (3) Diabetes Status: Chronic (4) Facial contusion Status: Acute (5) Hyperlipidemia Nec/Nos Status: Chronic (6) Hypertension Status: Chronic (7) Patella fracture Status: Acute (8) Right hip pain Status: Acute (9) Tricuspid Valve Disease Status: Chronic Review of Systems Constitutional: No fever, No chills Respiratory: No cough, No sputum Cardiac: + chest pain, No orthopnea Abdomen: No pain, No nausea Musculoskeletal: + joint pain Neurologic: No memory loss, No paralysis Endo: No fatigue Skin: No itch All Other Systems: Reviewed and Negative Medications Current Inpatient Medications Medications (Trade) Dose Ordered Sig/Carlos Route Start Time Stop Time Status Last Admin Dose Admin Enoxaparin Sodium (Lovenox Inj) 30 mg Q12 SQ 04/23/17 21:00 05/23/17 20:59 04/25/17 22:04 30 MG Acetaminophen (Tylenol Tab) 650 mg Q4H PRN PO 04/23/17 17:00 05/23/17 16:59 Lisinopril (Zestril Tab) 5 mg QAM PO 04/24/17 09:00 05/24/17 08:59 04/25/17 09:38 5 MG Nadolol (Corgard Tab) 20 mg QAM PO 04/24/17 09:00 05/24/17 08:59 04/25/17 09:43 20 MG Miscellaneous Information (Order Awaiting Action) 1 ea QS N/A 04/24/17 00:00 05/24/17 00:00 Ferrous Sulfate (Feosol Tab) 325 mg TIDM PO 04/24/17 08:30 05/24/17 08:29 04/25/17 17:34 325 MG Mupirocin (Bactroban 2% Oint) 1 appln BID EXT 04/23/17 21:00 05/23/17 20:59 04/25/17 21:59 1 APPLN Pantoprazole Sodium (Protonix Tab) 40 mg QAM PO 04/24/17 09:00 05/24/17 08:59 04/25/17 09:38 40 MG Morphine Sulfate (MoRPHine SULFATE INJ) 2 mg Q2H PRN IV 04/23/17 17:00 05/07/17 16:59 04/23/17 23:46 2 MG Oxycodone HCl (Roxicodone Immediate Rel Tab) 5 mg Q4H PRN PO 04/23/17 17:00 05/07/17 16:59 04/24/17 13:38 5 MG Ceftriaxone Sodium 1 gm/ Dextrose 50 ml @ 100 mls/hr DAILY@1999 IV 04/23/17 20:30 05/03/17 19:59 04/25/17 20:03 100 MLS/HR Levofloxacin 500 mg/Prmx 100 ml @ 100 mls/hr Q24H IV 04/23/17 22:00 05/03/17 21:59 04/25/17 22:04 100 MLS/HR Guaifenesin (Mucinex Contr Rel Tab) 600 mg Q12 PO 04/23/17 21:00 05/23/17 20:59 04/25/17 22:02 600 MG Loperamide HCl (Imodium Cap) 2 mg HS PO 04/23/17 21:00 05/23/17 20:59 04/23/17 21:13 2 MG Simethicone (Mylicon Chew Tab) 80 mg HS PO 04/23/17 21:00 05/23/17 20:59 04/25/17 22:02 80 MG Cyclosporine (Restasis) 1 drops Q12 OP 04/24/17 09:00 05/24/17 08:59 04/25/17 21:59 1 DROPS Ondansetron HCl (Zofran Inj) 4 mg Q4H PRN IV 04/24/17 00:45 05/24/17 00:44 04/24/17 19:22 4 MG Tramadol HCl (Ultram Tab) @ Q4H PRN PO 04/24/17 08:00 05/24/17 07:59 04/25/17 22:20 50 MG Furosemide (Lasix Tab) 20 mg DAILY PO 04/25/17 09:00 05/25/17 08:59 04/25/17 09:44 20 MG Insulin Aspart (novoLOG ASPART) SLIDING SCALE G... ACHS SC 04/24/17 17:15 05/24/17 17:14 04/25/17 22:15 1 UNITS Artificial Tears (Lacri-Lube Oph Oint) 1 appln Q2H OPB 04/24/17 13:30 05/24/17 13:29 04/26/17 05:50 1 APPLN Fluocinonide (Lidex Crm) 1 appln DAILY EXT 04/25/17 09:00 05/25/17 08:59 Glipizide (Glucotrol Tab) 5 mg BIDM PO 04/24/17 17:45 05/24/17 07:59 04/25/17 17:34 5 MG Glucose (Glucose 40% Gel) 15-30 GRAMS 15 GRAMS... UD PRN PO 04/24/17 13:00 05/24/17 12:59 Glucose (Glucose Chew Tab) 4-8 Tablets 4 Tabl... UD PRN PO 04/24/17 13:00 05/24/17 12:59 Dextrose (Dextrose 50% 50ML Syringe) 25-50ML OF 50% DW IV FOR... UD PRN IV 04/24/17 13:00 05/24/17 12:59 Glucagon (Glucagon Inj) 1 mg UD PRN SQ 04/24/17 13:00 05/24/17 12:59 Potassium Chloride 40 meq/ Sodium Chloride 1,020 ml @ 100 mls/hr [id number] IV 04/25/17 18:00 05/25/17 17:59 04/26/17 04:26 100 MLS/HR Calcium/Vitamin D (Caltrate Plus Tab) 1 tab BIDM PO 04/26/17 08:30 05/26/17 08:29 Non-Formulary Medication (Non-Formulary Patient'S Own Med) 1 ea HS OP 04/26/17 21:00 05/26/17 20:59 Objective Vital Signs Date Time Temp Pulse Resp B/P (MAP) Pulse Ox O2 Delivery O2 Flow Rate FiO2 04/25/17 16:00 Room Air 04/25/17 15:20 36.5 70 16 126/61 (82) 94 Room Air 04/25/17 07:20 Room Air 04/25/17 06:51 36.5 75 15 152/89 (110) 98 Room Air 04/24/17 23:55 Room Air 04/24/17 23:35 36.3 70 16 110/64 (79) 97 Room Air Physical Exam General Appearance: WD/WN, no apparent distress Neck: supple, no adenopathy Respiratory/Chest: chest non-tender, lungs clear, normal breath sounds Cardiovascular: regular rate, rhythm, no gallop, no JVD, + systolic murmur Abdomen: normal bowel sounds, non tender, soft Extremities: no pedal edema, no calf tenderness Comments: right knee in brace. Laboratory Results Last 24 Hours Test 04/24/17 17:02 04/24/17 20:44 04/25/17 10:46 04/25/17 16:21 Bedside Glucose 185 mg/dl 193 mg/dl Sodium Level 127 mmol/L Potassium Level 3.9 mmol/L Chloride Level 95 mmol/L Carbon Dioxide Level 23 mmol/L Anion Gap 9.0 mmol/L Blood Urea Nitrogen 18 mg/dl Creatinine 0.95 mg/dl Est Creatinine Clear Calc Drug Dose 41.1 ml/min Estimated GFR () 68.9 Estimated GFR (Non- 59.4 BUN/Creatinine Ratio 19.3 Random Glucose 208 mg/dl Calcium Level 7.9 mg/dl Assessment and Plan 71-year-old female presents to the emergency department with complaint of right knee pain after a fall that occurred about 1-1/2 hours prior to arrival. The fall occurred after she tripped on a rug and fell forward, landing on a carpet and hitting her face, her right knee and right elbow. She had a transient nosebleed resolved after a few minutes. She has not been able to bear weight on her right leg since the fall. Right nondisplaced comminuted patellar fracture/right knee effusion: - Admitted to med/surg - Tylenol for mild pain, [place] for moderate pain, and morphine IV for severe pain - Zofran PRN for nausea - Consult orthopedics, appreciate recommendations- immobilizer, weightbearing as tolerated, f/u in 2 weeks w/ Dr. Rosario Pansinusitis: Ceftriaxone 1 g IV daily and Levofloxacin 500 mg IV daily Hypertension: Continue Nadolol 20 mg daily, Lisinopril 5 mg daily, and Lasix 20 mg daily T2DM: - Metformin 500 mg BID held - Glipizide from 5 mg BID - BSG ACHS and sliding insulin scale GERD: Protonix- resume Prilosec at discharge Dry eye: Continue Restasis and refresh Lacri-Lube Byponatremia/hypokalemia: currently with NSS and K. will recheck in AM. Not overly concerned though given that this problem is chronic. Code Status: LEVEL I, FULL DVT prophylaxis: Lovenox SQ daily Dispo: From home, lives alone- will likely need placement- PT/OT and social welfare administrator consulted Continued [facility] stay due to: other Discharge planning: rehab hospital
[2017-04-25 16:57] LABS: BUN/CREATININE RATIO 19.6 (10-20); CALCIUM 7.6 mg/dl (8.5-10.1); CREATININE 0.88 mg/dl (0.60-1.20); POTASSIUM 3.4 mmol/L (3.5-5.1)
[2017-04-25] MEDS: POTASSIUM CHLORIDE INJ 40 MEQ in SODIUM CHLORIDE 0.9% 1000ML 1,000 ML IV SCH (18:24)
[2017-04-25] MEDS: CEFTRIAXONE SOD INJ 1 GM in DEXTROSE 5% ADD-VANTAGE 50ML 50 ML IV SCH (20:03)
[2017-04-25] MEDS: LOPERAMIDE HCL 2 MG CAP PO SCH (21:00)
[2017-04-25] MEDS: SIMETHICONE 80 MG CHEW PO SCH (22:02)
[2017-04-25] MEDS: LEVOFLOXACIN / D5W 500 MG in PREMIXED IN D5W 100 ML IV SCH (22:04)
[2017-04-25 22:55] VITALS: BP 121/63; PULSE 77; TEMP 36.7; O2SAT 96
[2017-04-26] MEDS: ARTIFICIAL TEARS OP OINT 3.5 GM TUBE OPB SCH ×13 (00:16→23:35)
[2017-04-26] MEDS: POTASSIUM CHLORIDE INJ 40 MEQ in SODIUM CHLORIDE 0.9% 1000ML 1,000 ML IV SCH (04:26)
[2017-04-26 07:11] LABS: HEMATOCRIT 25.9 % (37-47); MEAN CELL VOLUME 95.2 fL (80-100); MEAN CORPUSCULAR HEMOGLOBIN 30.9 pg (25-34); MEAN CORPUSCULAR HGB CONC 32.4 g/dl (32-36); MEAN PLATELET VOLUME 10.9 fL (7.4-10.4); PLATELET COUNT 108 K/uL (130-400); RED BLOOD COUNT 2.72 M/uL (4.2-5.4); WHITE BLOOD COUNT 4.81 K/uL (4.8-10.8)
[2017-04-26 07:37] LABS: CREATININE 0.65 mg/dl (0.60-1.20)
[2017-04-26 07:59] VITALS: BP 128/67; PULSE 69; TEMP 36.6; O2SAT 91
[2017-04-26] MEDS: CALCIUM 600MG + VIT D 400 IU TAB PO SCH ×2 (08:57→17:37)
[2017-04-26] MEDS: TRAMADOL HCL 50 MG TAB PO PRN ×3 (08:57→20:40)
[2017-04-26] MEDS: ENOXAPARIN 30 MG/0.3 ML SYR SQ SCH ×2 (08:57→20:41)
[2017-04-26] MEDS: FERROUS SULFATE 325 MG TAB PO SCH ×3 (08:58→17:37)
[2017-04-26] MEDS: FUROSEMIDE 20 MG TAB PO SCH (08:58)
[2017-04-26] MEDS: CycloSPORINE 0.05% 0.4 ML 30 UDV/BOX OP SCH ×2 (08:58→20:42)
[2017-04-26] MEDS: GUAIFENESIN 600 MG TABCR PO SCH ×2 (08:58→22:28)
[2017-04-26] MEDS: MUPIROCIN 2% OINT 22 GM TUBE EXT SCH ×2 (08:59→20:41)
[2017-04-26] MEDS: PANTOprazole SOD 40 MG TAB PO SCH (08:59)
[2017-04-26] MEDS: LISINOPRIL 5 MG TAB PO SCH (09:00)
[2017-04-26] MEDS: FLUOCINONIDE 0.05% CR 15 GM TUBE EXT SCH (09:00)
[2017-04-26] MEDS: NADOLOL 40 MG TAB PO SCH (09:01)
[2017-04-26] MEDS: INSULIN ASPART 100 UNITS/ML 3 ML PEN SC SCH ×4 (09:07→20:58)
[2017-04-26] MEDS ORDERED: DOCUSATE SODIUM 100 MG CAP PO ONE (09:48)
[2017-04-26] MEDS ORDERED: SODIUM CHLORIDE 0.65% NA SOLN 45 ML (OCEAN) PRN (10:00)
--- NOTE | 2017-04-26 10:09 | Progress Note ---
Subjective Date of Service: Apr 26, 2017. Subjective Patient reports that she had a terrible night. She reports that her sinuses are significantly worse today than they were yesterday. Nurse also states that she has not had a bowel movement today. Patient denies any nausea, vomiting, or abdominal pain, fever, chills. Problem List Medical Problems: (1) Aortic Valve Disorder Status: Chronic (2) Closed head injury Status: Acute (3) Diabetes Status: Chronic (4) Facial contusion Status: Acute (5) Hyperlipidemia Nec/Nos Status: Chronic (6) Hypertension Status: Chronic (7) Patella fracture Status: Acute (8) Right hip pain Status: Acute (9) Tricuspid Valve Disease Status: Chronic Review of Systems Constitutional: No fever, No chills Eyes: No eye pain ENT: No unusual epistaxis Respiratory: No cough Cardiac: No chest pain, No orthopnea Abdomen: No pain, No nausea Musculoskeletal: No joint pain Female : No dysuria Neurologic: No paralysis Psychiatric: No depression symptoms Endo: No fatigue Skin: No rash All Other Systems: Reviewed and Negative Medications Current Inpatient Medications Medications (Trade) Dose Ordered Sig/Carlos Route Start Time Stop Time Status Last Admin Dose Admin Enoxaparin Sodium (Lovenox Inj) 30 mg Q12 SQ 04/23/17 21:00 05/23/17 20:59 04/26/17 20:41 30 MG Acetaminophen (Tylenol Tab) 650 mg Q4H PRN PO 04/23/17 17:00 05/23/17 16:59 Lisinopril (Zestril Tab) 5 mg QAM PO 04/24/17 09:00 05/24/17 08:59 04/26/17 09:00 5 MG Nadolol (Corgard Tab) 20 mg QAM PO 04/24/17 09:00 05/24/17 08:59 04/26/17 09:01 20 MG Miscellaneous Information (Order Awaiting Action) 1 ea QS N/A 04/24/17 00:00 05/24/17 00:00 Ferrous Sulfate (Feosol Tab) 325 mg TIDM PO 04/24/17 08:30 05/24/17 08:29 04/26/17 17:37 325 MG Mupirocin (Bactroban 2% Oint) 1 appln BID EXT 04/23/17 21:00 05/23/17 20:59 04/26/17 20:41 1 APPLN Pantoprazole Sodium (Protonix Tab) 40 mg QAM PO 04/24/17 09:00 05/24/17 08:59 04/26/17 08:59 40 MG Morphine Sulfate (MoRPHine SULFATE INJ) 2 mg Q2H PRN IV 04/23/17 17:00 05/07/17 16:59 04/23/17 23:46 2 MG Oxycodone HCl (Roxicodone Immediate Rel Tab) 5 mg Q4H PRN PO 04/23/17 17:00 05/07/17 16:59 04/24/17 13:38 5 MG Guaifenesin (Mucinex Contr Rel Tab) 600 mg Q12 PO 04/23/17 21:00 05/23/17 20:59 04/26/17 22:28 600 MG Loperamide HCl (Imodium Cap) 2 mg HS PO 04/23/17 21:00 05/23/17 20:59 04/23/17 21:13 2 MG Simethicone (Mylicon Chew Tab) 80 mg HS PO 04/23/17 21:00 05/23/17 20:59 04/26/17 20:44 80 MG Cyclosporine (Restasis) 1 drops Q12 OP 04/24/17 09:00 05/24/17 08:59 04/26/17 20:42 1 DROPS Ondansetron HCl (Zofran Inj) 4 mg Q4H PRN IV 04/24/17 00:45 05/24/17 00:44 04/24/17 19:22 4 MG Tramadol HCl (Ultram Tab) @ Q4H PRN PO 04/24/17 08:00 05/24/17 07:59 04/26/17 20:40 50 MG Furosemide (Lasix Tab) 20 mg DAILY PO 04/25/17 09:00 05/25/17 08:59 04/26/17 08:58 20 MG Insulin Aspart (novoLOG ASPART) SLIDING SCALE G... ACHS SC 04/24/17 17:15 05/24/17 17:14 04/26/17 20:58 1 UNITS Artificial Tears (Lacri-Lube Oph Oint) 1 appln Q2H OPB 04/24/17 13:30 05/24/17 13:29 04/26/17 23:35 1 APPLN Fluocinonide (Lidex Crm) 1 appln DAILY EXT 04/25/17 09:00 05/25/17 08:59 Glipizide (Glucotrol Tab) 5 mg BIDM PO 04/24/17 17:45 05/24/17 07:59 04/26/17 17:38 5 MG Glucose (Glucose 40% Gel) 15-30 GRAMS 15 GRAMS... UD PRN PO 04/24/17 13:00 05/24/17 12:59 Glucose (Glucose Chew Tab) 4-8 Tablets 4 Tabl... UD PRN PO 04/24/17 13:00 05/24/17 12:59 Dextrose (Dextrose 50% 50ML Syringe) 25-50ML OF 50% DW IV FOR... UD PRN IV 04/24/17 13:00 05/24/17 12:59 Glucagon (Glucagon Inj) 1 mg UD PRN SQ 04/24/17 13:00 05/24/17 12:59 Calcium/Vitamin D (Caltrate Plus Tab) 1 tab BIDM PO 04/26/17 08:30 05/26/17 08:29 04/26/17 17:37 1 TAB Non-Formulary Medication (Non-Formulary Patient'S Own Med) 1 ea HS OP 04/26/17 21:00 05/26/17 20:59 04/26/17 22:26 1 EA Docusate Sodium (coLACE CAP) 100 mg BID PO 04/26/17 21:00 05/26/17 20:59 04/26/17 20:43 100 MG Polyethylene (Miralax Powder Packet) 17 gm DAILY PO 04/27/17 09:00 05/27/17 08:59 Sodium Chloride ([place] Nasal [place]ida) 2 sprays Q6H PRN NA 04/26/17 10:00 05/26/17 09:59 Trimethoprim/ Sulfamethoxazole (Septra Ds 800/ 160MG Tab) 1 tab Q12 PO 04/26/17 21:00 05/06/17 08:59 04/26/17 20:44 1 TAB Objective Vital Signs Date Time Temp Pulse Resp B/P (MAP) Pulse Ox O2 Delivery O2 Flow Rate FiO2 04/26/17 07:59 36.6 69 16 128/67 (87) 91 Room Air 04/26/17 07:26 Room Air 04/26/17 00:11 Room Air 04/25/17 22:55 36.7 77 16 121/63 (82) 96 Room Air 04/25/17 16:00 Room Air 04/25/17 15:20 36.5 70 16 126/61 (82) 94 Room Air Physical Exam Comments: General Appearance: WD/WN, no apparent distress Neck: supple, no adenopathy Respiratory/Chest: chest non-tender, lungs clear, normal breath sounds Cardiovascular: regular rate, rhythm, no gallop, no JVD, + systolic murmur Abdomen: normal bowel sounds, non tender, soft Extremities: no pedal edema, no calf tenderness Comments: right knee in brace. Laboratory Results Last 24 Hours Test 04/25/17 10:46 04/25/17 11:59 04/25/17 16:21 04/25/17 17:20 Sodium Level 127 mmol/L 130 mmol/L Potassium Level 3.9 mmol/L 3.4 mmol/L Chloride Level 95 mmol/L 96 mmol/L Carbon Dioxide Level 23 mmol/L 24 mmol/L Anion Gap 9.0 mmol/L 10.0 mmol/L Blood Urea Nitrogen 18 mg/dl 17 mg/dl Creatinine 0.95 mg/dl 0.88 mg/dl Est Creatinine Clear Calc Drug Dose 41.1 ml/min 44.3 ml/min Estimated GFR () 68.9 75.5 Estimated GFR (Non- 59.4 65.2 BUN/Creatinine Ratio 19.3 19.6 Random Glucose 208 mg/dl 147 mg/dl Calcium Level 7.9 mg/dl 7.6 mg/dl Bedside Glucose 184 mg/dl 158 mg/dl Osmolality 269 mOsm/kg Test 04/25/17 18:30 04/25/17 20:31 04/26/17 06:30 04/26/17 08:11 Urine Osmolality 511 mOms/kg Urine Random Sodium 71 mEq/L Bedside Glucose 189 mg/dl 132 mg/dl White Blood Count 4.81 K/uL Red Blood Count 2.72 M/uL Hemoglobin 8.4 g/dL Hematocrit 25.9 % Mean Corpuscular Volume 95.2 fL Mean Corpuscular Hemoglobin 30.9 pg Mean Corpuscular Hemoglobin Concent 32.4 g/dl RDW Standard Deviation 54.4 fL RDW Coefficient of Variation 15.7 % Platelet Count 108 K/uL Mean Platelet Volume 10.9 fL Creatinine 0.65 mg/dl Est Creatinine Clear Calc Drug Dose 60.0 ml/min Estimated GFR () 102.1 Estimated GFR (Non- 88.1 Test 04/26/17 09:32 Assessment and Plan 71-year-old female presents to the emergency department with complaint of right knee pain after a fall that occurred about 1-1/2 hours prior to arrival. The fall occurred after she tripped on a rug and fell forward, landing on a carpet and hitting her face, her right knee and right elbow. She had a transient nosebleed resolved after a few minutes. She has not been able to bear weight on her right leg since the fall. Right nondisplaced comminuted patellar fracture/right knee effusion: - Admitted to med/surg - Tylenol for mild pain, [place] for moderate pain, and morphine IV for severe pain - Zofran PRN for nausea - Consult orthopedics, appreciate recommendations- immobilizer, weightbearing as tolerated, f/u in 2 weeks w/ Dr. Rosario -patient has not had a BM for about 3 days. will give laxatives. Pansinusitis: Ceftriaxone 1 g IV daily and Levofloxacin 500 mg IV daily, worsened by high heat coming from her heater (room was very warm). switched to po antibiotics. will also decrease heater and give normal saline. Hypertension: Continue Nadolol 20 mg daily, Lisinopril 5 mg daily, and Lasix 20 mg daily T2DM: - Metformin 500 mg BID held - Glipizide from 5 mg BID - BSG ACHS and sliding insulin scale GERD: Protonix- resume Prilosec at discharge Dry eye: Continue Restasis and refresh Lacri-Lube Byponatremia/hypokalemia: currently with NSS and K. will recheck in AM. Not overly concerned though given that this problem is chronic. Code Status: LEVEL I, FULL DVT prophylaxis: Lovenox SQ daily Dispo: From home, lives alone- will likely need placement- PT/OT and psychotherapist social worker consulted Update: (17:00) No bowel movement today. Sinuses have improved. likely culprit was dry air due to heater in patients room. Continued [facility] stay due to: other Discharge planning: rehab hospital
[2017-04-26] MEDS ORDERED: POLYETHYLENE (MIRALAX) 17 GM PACK PO ONE (10:15)
[2017-04-26] MEDS ORDERED: SULFAMETHOXAZOLE/TRIMETHOPRIM DS 800/160MG TAB PO ONE (10:30)
[2017-04-26 10:35] LABS: BUN/CREATININE RATIO 18.2 (10-20); CALCIUM 7.4 mg/dl (8.5-10.1); CREATININE 0.74 mg/dl (0.60-1.20); POTASSIUM 4.7 mmol/L (3.5-5.1)
[2017-04-26 15:00] VITALS: BP 122/71; PULSE 73; TEMP 36.5; O2SAT 97
[2017-04-26] MEDS: DOCUSATE SODIUM 100 MG CAP PO SCH (20:43)
[2017-04-26] MEDS: LOPERAMIDE HCL 2 MG CAP PO SCH (20:43)
[2017-04-26] MEDS: SIMETHICONE 80 MG CHEW PO SCH (20:44)
[2017-04-26] MEDS: SULFAMETHOXAZOLE/TRIMETHOPRIM DS 800/160MG TAB PO SCH (20:44)
[2017-04-26] MEDS ORDERED: NON-FORMULARY PATIENT'S OWN MED OP SCH (21:00)
[2017-04-26 23:18] VITALS: BP 147/68; PULSE 71; TEMP 36.6; O2SAT 95
[2017-04-27] MEDS: ARTIFICIAL TEARS OP OINT 3.5 GM TUBE OPB SCH ×6 (01:10→12:38)
[2017-04-27 06:48] VITALS: BP 159/77; PULSE 73; TEMP 36.7; O2SAT 97
[2017-04-27] MEDS: INSULIN ASPART 100 UNITS/ML 3 ML PEN SC SCH ×2 (08:47→12:42)
[2017-04-27] MEDS: CycloSPORINE 0.05% 0.4 ML 30 UDV/BOX OP SCH (08:47)
[2017-04-27] MEDS: MUPIROCIN 2% OINT 22 GM TUBE EXT SCH (08:48)
[2017-04-27] MEDS: ENOXAPARIN 30 MG/0.3 ML SYR SQ SCH (08:48)
[2017-04-27] MEDS: FLUOCINONIDE 0.05% CR 15 GM TUBE EXT SCH (08:48)
[2017-04-27] MEDS: CALCIUM 600MG + VIT D 400 IU TAB PO SCH (08:50)
[2017-04-27] MEDS: FERROUS SULFATE 325 MG TAB PO SCH ×2 (08:51→12:38)
[2017-04-27] MEDS: DOCUSATE SODIUM 100 MG CAP PO SCH (08:52)
[2017-04-27] MEDS: NADOLOL 40 MG TAB PO SCH (08:53)
[2017-04-27] MEDS: FUROSEMIDE 20 MG TAB PO SCH (08:53)
[2017-04-27] MEDS: SULFAMETHOXAZOLE/TRIMETHOPRIM DS 800/160MG TAB PO SCH (08:55)
[2017-04-27] MEDS: LISINOPRIL 5 MG TAB PO SCH (08:56)
[2017-04-27] MEDS ORDERED: POLYETHYLENE (MIRALAX) 17 GM PACK PO SCH (09:00)
[2017-04-27] MEDS: PANTOprazole SOD 40 MG TAB PO SCH (09:14)
[2017-04-27] MEDS: GUAIFENESIN 600 MG TABCR PO SCH (09:14)
[2017-04-27] MEDS: TRAMADOL HCL 50 MG TAB PO PRN (09:15)
--- NOTE | 2017-04-27 12:55 | Discharge Instructions ---
Discharge Instructions Date of Service Apr 27, 2017. Admission Reason for Admission: Pansinusitis, Patella Fracture Discharge Discharge Diagnosis / Problem: Patella Fracture Discharge Goals Goal(s): Decrease discomfort, Improve function Activity Recommendations Activity Limitations: as noted below Lifting Limitations: gradually increase as tolerated Exercise/Sports Limitations: gradually increase as tolerated . Instructions / Follow-Up Instructions / Follow-Up F/U with PCP in 1 week. F/U with Dr. Rosario in 2 weeks Current Hospital Diet Patient's current hospital diet: Diabetes Type 2 Diet Discharge Diet Recommended Diet: Diabetes Type 2 Diet Pending Studies Studies pending at discharge: no Laboratory Results Hemoglobin A1c Test 04/11/17 13:46 Range/Units Estimated Average Glucose 117 mg/dl Hemoglobin A1c 5.7 H 4.5-5.6 % Medical Emergencies . Who to Call and When: Medical Emergencies: If at any time you feel your situation is an emergency, please call 911 immediately. . Non-Emergent Contact Non-Emergency issues call your: Primary Care Provider Call Non-Emergent contact if: your pain is worsening . . "Provider Documentation" section prepared by Benito Mchugh. . VTE Core Measure Inpt VTE Proph given/why not?: Enoxaparin (Lovenox)SQ, SCD's
[2017-04-27 13:07] VITALS: BP 159/77; PULSE 73; TEMP 36.7; O2SAT 97
--- NOTE | 2017-05-07 10:34 | Discharge Summary ---
Discharge Summary Date of Service Apr 27, 2017. Discharge Summary Admission Date: Apr 23, 2017 at 17:40 Discharge Date: Apr 27, 2017 Discharge Disposition: correction facility Principal Diagnosis: Patella fracture Problems/Secondary Diagnoses: (1) Aortic Valve Disorder Status: Chronic (2) Diabetes Status: Chronic (3) Hyperlipidemia Nec/Nos Status: Chronic (4) Hypertension Status: Chronic (5) Tricuspid Valve Disease Status: Chronic Immunizations: Have You Had Influenza Vaccine: Yes Influenza Vaccine Date: Sep 27, 2009 History of Tetanus Vaccine?: No History of Pneumococcal: No Pneumococcal Date: Sep 27, 2009 History of Hepatitis B Vaccine: No Consultations: DATE OF CONSULTATION: 04/24/2017 REASON FOR CONSULT: Right patellar fracture. HISTORY OF PRESENT ILLNESS: The patient is a 71-year-old white female known to our practice who states that yesterday evening she was ambulating in her home and her shoe caught on the carpet and she lost her balance and fell straightforward. She states that she had pain in her knee and she also had hit her face on the ground as well. She denies losing consciousness. She denies any shortness of breath, chest pain or lightheadedness prior to or after the fall. She was brought to the emergency room where she was seen by the staff. X-rays were taken and it was found that she had a patellar fracture of the right patella. She was admitted by the [facility] and we have been asked to see her for patellar fracture. PAST MEDICAL HISTORY: Aortic valve disorder, history of bladder CA in the past, diabetes mellitus, hyperlipidemia, hypertension, history of epistaxis. PAST SURGICAL HISTORY: Hysterectomy, lumbar decompression surgery for bladder cancer. FAMILY HISTORY: Diabetes mellitus, bladder cancer and heart disease. SOCIAL HISTORY: The patient lives alone, is a nonsmoker and does not use alcohol. MEDICATIONS: Artificial tears tear ointment 1 dose OPB q. 2 hours, cyclosporine 1 drop OPB q.12 hours, ferrous sulfate 325 mg p.o. t.i.d., Lidex cream 1 application topically as directed, furosemide 20 mg p.o. daily, glipizide 5 mg p.o. b.i.d., lisinopril 5 mg p.o. q.a.m., Imodium 1 tab p.o. at bedtime, metformin 500 mg p.o. b.i.d., Bactroban 1 application externally b.i.d., nadolol 20 mg p.o. q.a.m., omeprazole 20 mg p.o. q.a.m., oxycodone 5 mg p.o. q. 4 hours p.r.n. and Tronolane 1 application topical daily p.r.n. for hemorrhoids. ALLERGIES: DOXYCYCLINE, IODINE AND TETRACYCLINE. REVIEW OF SYSTEMS: As per admitting history and physical. PHYSICAL EXAMINATION: GENERAL: The patient is a 71-year-old white female who appears her stated. She is pleasant and cooperative and in no acute distress, alert and oriented to person and place. EXTREMITIES: On examination of her right lower extremity an immobilizer has been placed on her right knee and is removed for exam. She has some mild swelling of the knee itself and there is no glaring step offs or deformity to the patella at this time. No overt areas of ecchymosis. She is tender on palpation over the patella itself. Joint effusion is noted likely due to fracture. She denies tenderness of the tibia going distally into the ankle and she has no hip pain at this point in time on the right lower extremity and is nontender over the femur itself. Left lower extremity is essentially benign and range of motion is within normal limits and is nontender. She has some decreased range of motion of the left shoulder due to DJD and right shoulder essentially within normal limits without discomfort. There is no gross motor or sensory loss of her extremities other than her knee due to effusion and fracture of the patella. ASSESSMENT: Right minimally displaced patellar fracture. PLAN: At this point in time we will put her in an immobilizer and leaver her in an immobilizer, weightbearing as tolerated. This is not a surgical issue at this time and she will be treated conservatively. She can be up weightbearing as tolerated with the immobilizer on. She may remove for bathing and while her leg is in full extension while at rest just to relieve her from the pressure of the immobilizer at times. She will likely need to use a walker for ambulation initially. The patient states that she is scheduled for shoulder surgery with Dr. Rosario in the near future which may have to be postponed due to use of walker. Plans will be to start her on PT and OT today to see how she ambulates. She can follow up with Dr. Rosario in 2 weeks in the office. Thank you for this consult. Please call with any questions. Dictated: 04/24/17805 Transcribed: 04/24/1723 <Electronically signed by Willis PEREZ> Signed: 04/24/17 1018 04/28/17 0831 Willis Askew <Electronically signed by Celestine Rosario M.D.> <Electronically signed by Celestine Rosario M.D.> Celestine Rosario M.D., Douglas, M.D. Medication Reconciliation Continued Medications: Artificial Tear Ointment (Refresh Lacri-Lube) 1 Oin Oin 1 DOSE OPB Q2H Cyclosporine (Ophth) (Restasis) 0.05 % Emu 1 DROP OPB Q12 Ferrous Sulfate (Kp Ferrous Sulfate) 325 Mg Tab 325 MG PO TID Fluocinonide (Lidex 0.05% Cream) 90 Appln/30 Gm Cr 1 APPLN TOP DIRECTED Furosemide (Furosemide) 20 Mg Tab 20 MG PO DAILY Glipizide (Glipizide) 5 Mg Tab 5 MG PO BID Lisinopril (Lisinopril) 5 Mg Tab 5 MG PO QAM Loperamide-Simethicone (Imodium Multi-Symptom Rel) 1 Tab Tab 1 TAB PO HS Metformin Hcl (Glucophage) 500 Mg Tab 500 MG PO BID Mupirocin 2% (Bactroban 2%) 30 Gm Cr 1 APPLN EXT BID APPLY TO NOSE Nadolol (Corgard) 20 Mg Tab 20 MG PO QAM Omeprazole (Prilosec) 20 Mg Cap 20 MG PO QAM Oxycodone Hcl (Oxycodone Hcl) 5 Mg Cap 5 MG PO Q4H PRN for Pain Pramoxine Hcl-Zinc Oxide (Tronolane) 1 Cre Cre 1 APPLN TOP DAILY PRN for Hemorrhoids TO HEMORRHOIDS Discharge Exam Review of Systems: Constitutional: No fever Respiratory: No cough, No sputum, No wheezing Cardiovascular: No chest pain, No orthopnea, No PND Abdomen: No pain, No nausea, No vomiting Musculoskeletal: + joint pain Neurologic: No memory loss, No paralysis, No weakness Hematologic / Lymphatic: No abnormal bleeding/bruising, No clotting problems Physical Exam: General Appearance: WD/WN, no apparent distress Neck: supple Respiratory/Chest: chest non-tender, lungs clear, normal breath sounds, no respiratory distress Cardiovascular: regular rate, rhythm, no edema, no gallop Abdomen / GI: normal bowel sounds, non tender, soft Extremities: no calf tenderness Skin: normal color Lymphatic: no adenopathy Hospital Course 71-year-old female presents to the emergency department with complaint of right knee pain after a fall that occurred about 1-1/2 hours prior to arrival. The fall occurred after she tripped on a rug and fell forward, landing on a carpet and hitting her face, her right knee and right elbow. She had a transient nosebleed resolved after a few minutes. She has not been able to bear weight on her right leg since the fall. Right nondisplaced comminuted patellar fracture/right knee effusion: - Admitted to med/surg - Tylenol for mild pain, [place] for moderate pain, and morphine IV for severe pain - Zofran PRN for nausea - Consult orthopedics, appreciate recommendations- immobilizer, weightbearing as tolerated, f/u in 2 weeks w/ Dr. Rosario Pansinusitis: improved after decreasing heater, likely environmental. will continue with saline nasal spray. Hypertension: Continue Nadolol 20 mg daily, Lisinopril 5 mg daily, and Lasix 20 mg daily T2DM: - Metformin 500 mg BID held - Glipizide from 5 mg BID - BSG ACHS and sliding insulin scale GERD: Protonix- resume Prilosec at discharge Dry eye: Continue Restasis and refresh Lacri-Lube Hyponatremia/hypokalemia: she has chronic hyponatremia Code Status: LEVEL I, FULL DVT prophylaxis: Lovenox SQ daily Total Time Spent: Greater than 30 minutes This includes examination of the patient, discharge planning, medication reconciliation, and communication with other providers. Discharge Instructions Please refer to the electronic Patient Visit Report (Discharge Instructions) for additional information. Follow-Up As stated on discharge instructions Dr. Rosario in 2 weeks
== END 2017-04-27 13:26 | DRG 563 ==
LOC: C.EDB 12:03 → C.MSN 17:40 → ENRESERV 18:03
PROVIDERS: ADMIT Hospitalist; ATTEND Hospitalist
DX: S82.041A Displaced comminuted fracture of right patella, initial encounter for closed fracture (principal); E87.1 Hypo-osmolality and hyponatremia; I08.2 Rheumatic disorders of both aortic and tricuspid valves; J32.4 Chronic pansinusitis; E11.9 Type 2 diabetes mellitus without complications; I10 Essential (primary) hypertension; M81.0 Age-related osteoporosis without current pathological fracture; Z83.3 Family history of diabetes mellitus; S50.311A Abrasion of right elbow, initial encounter; S00.93XA Contusion of unspecified part of head, initial encounter; Y93.01 Activity, walking, marching and hiking; E78.5 Hyperlipidemia, unspecified; Y92.009 Unspecified place in unspecified non-institutional (private) residence as the place of occurrence of the external cause; K21.9 Gastro-esophageal reflux disease without esophagitis; H04.129 Dry eye syndrome of unspecified lacrimal gland; E87.6 Hypokalemia; Z80.52 Family history of malignant neoplasm of bladder; W22.8XXA Striking against or struck by other objects, initial encounter; Z96.619 Presence of unspecified artificial shoulder joint; Z85.51 Personal history of malignant neoplasm of bladder

== ENCOUNTER → 2017-06-23 | Outpatient (CLI) | payer OTHER, MEDICARE ==
[~2017-06-23] MED LIST changes: -ANSHCCR RE; +BCTCR/30 EXT; -CETI10TA73 PO; -CLC100 PO; -CYCL0.05 OP; +CYCL0.052 OPB; +FERR1TAB13 PO; -FERR325T51 PO; -FLUO0.0543 TOP; -FURO40TA3 PO; +GLC5 PO; -GLIP-197 PO; -GLIP5TAB3 PO; +LDXCR30 TOP; +LOPE1TAB PO; -LOPETAB PO; +LSX20 PO; +OXYC1CAP5 PO; -SALI0.657 NAE; -VITAMIN A OP; -ZOLE5INJ IV; -[UNRECOGNIZED DRUG - CODE] NAE; -calcium PO
--- NOTE | 2017-06-23 16:48 | DIAGNOSTIC IMAGING REPORT ---
VENOUS DOPP LOWER EXT UNILAT HISTORY: 72 years-old Female RIGHT LEG R/O DVT acute swelling of the right lower extremity COMPARISON: None available TECHNIQUE: Multiple real-time sonographic images of the right lower extremity deep venous system were obtained assessing grayscale appearance, color and spectral flow. FINDINGS: Mild nonspecific edema. There is normal flow, augmentation, compressibility and phasicity of the right lower extremity deep venous structures. IMPRESSION: No sonographic evidence of deep venous thrombosis. The above report was generated using voice recognition software. It may contain grammatical, syntax or spelling errors. Electronically signed by: Kennedy Mary M.D. 06/23/2017 4:47 PM Dictated Date/Time: 06/23/2017 4:46 PM
== END | disposition home or self-care (01) ==
LOC: C.ULTR 16:02
DX: S82.001D Unspecified fracture of right patella, subsequent encounter for closed fracture with routine healing (principal); M79.604 Pain in right leg; X58.XXXD Exposure to other specified factors, subsequent encounter

== ENCOUNTER 2017-07-22 08:38 | Inpatient (IN) | payer OTHER, MEDICARE ==
[~2017-07-22] VITALS: Ht 149.9 cm; Wt 59.6 kg
[2017-07-22] VITALS (21 sets, daily range): BP systolic 105–177; BP diastolic 50–81; PULSE 86–99; TEMP 36.5–37; O2SAT 94–98; BMI 26.6
[~2017-07-22 08:38] MED LIST changes: +LISI-730 PO; -LSN5 PO
[2017-07-22] MEDS ORDERED: OXYMETAZOLINE HCL 0.05% NA SPR 15 ML BTL ONE (08:51)
[2017-07-22] MEDS ORDERED: LIDOCAINE 4% W/AFRIN NASAL SOLN 4ML ONE (09:01)
[2017-07-22] MEDS ORDERED: NADOLOL 40 MG TAB PO STA (09:10)
[2017-07-22] MEDS ORDERED: LISINOPRIL 5 MG TAB PO ONE (09:15)
--- NOTE | 2017-07-22 09:37 | EMERGENCY ROOM VISIT NOTE ---
History Report prepared by Myra: Mickey Clark Under the Supervision of: Dr. Yung Bowman M.D. 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 She notes the bleeding randomly started. She has had nosebleeds in the past, though this episode has lasted longer than usual. She has used nasal spray, Q-tips, cotton balls, and nasal clamps to help stop the bleeding, though the bleeding has not stopped. She notes that she has been coughing up blood clots. She states this is her 16th visit to the ED for nosebleeds. She reports that she regularly sees her ENT doctor. She took ibuprofen for right knee pain last night. She denies taking any other blood thinners. She notes the she has not been able to take her regular medications this morning due to the nosebleed. She denies any headaches, nausea or vomiting. 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 Review of Systems See HPI for pertinent positives & negatives. A total of 10 systems reviewed and were otherwise negative. Past Medical & Surgical Medical Problems: (1) Acute posterior epistaxis (2) Aortic Valve Disorder (3) Bladder Neoplasm Nos (4) Diabetes (5) Epistaxis (6) Epistaxis (7) Epistaxis (8) Epistaxis (9) Epistaxis (10) Esophageal Reflux (11) Fracture of fifth metacarpal bone (12) Hyperlipidemia Nec/Nos (13) Hypertension (14) Hypertension Nos (15) Osteoporosis Nos (16) Pansinusitis (17) Tricuspid Valve Disease Surgical Problems: (1) History of shoulder replacement (2) Knee Joint Replacement Status (3) Previous back surgery Family History Diabetes mellitus FH: bladder cancer FH: heart disease Social History Smoking Status: Former Smoker Alcohol Use: none Drug Use: none Marital Status: single Housing Status: lives alone Occupation Status: retired Current/Historical Medications Scheduled Cyclosporine (Ophth) (Restasis), 1 DROP OPB Q12 Ferrous Sulfate (Kp Ferrous Sulfate), 325 MG PO TID Fluocinonide (Lidex 0.05% Cream), 1 APPLN TOP DIRECTED Furosemide (Furosemide), 20 MG PO DAILY Glipizide (Glipizide), 5 MG PO BID Lisinopril (Lisinopril), 5 MG PO QAM Loperamide-Simethicone (Imodium Multi-Symptom Rel), 1 TAB PO HS Metformin Hcl (Glucophage), 500 MG PO BID Mupirocin 2% (Bactroban 2%), 1 APPLN EXT BID Nadolol (Corgard), 20 MG PO QAM Omeprazole (Prilosec), 20 MG PO QAM Pravastatin Sod (Pravastatin Sodium), 20 MG PO QAM Scheduled PRN Oxycodone Hcl (Oxycodone Hcl), 5 MG PO Q4H PRN for Pain Pramoxine Hcl-Zinc Oxide (Tronolane), 1 APPLN TOP DAILY PRN for Hemorrhoids Allergies Coded Allergies: Doxycycline (Verified Allergy, Intermediate, RASH, 07/22/17) Tetracycline (Verified Allergy, Intermediate, RASH, 07/22/17) Iodine (Verified Allergy, Unknown, Unknown rxn, 07/22/17) Physical Exam Vital Signs Date Time Temp Pulse Resp B/P (MAP) Pulse Ox O2 Delivery O2 Flow Rate FiO2 07/22/17 11:30 98 Room Air 07/22/17 11:27 87 142/71 07/22/17 10:43 81 18 119/56 97 Room Air 07/22/17 10:31 82 20 74/55 98 07/22/17 10:25 82 18 165/95 97 Room Air 07/22/17 10:14 85 07/22/17 08:45 36.4 91 18 172/87 96 Room Air Physical Exam GENERAL: Patient is in no acute distress. HEENT: No acute trauma, normocephalic atraumatic, mucous membranes moist, no nasal congestion, no scleral icterus. Active bleeding from left naris. Blood running down back of throat. NECK: No stridor, no adenopathy, no meningismus, trachea is midline. LUNGS: Clear to auscultation bilaterally, no wheeze, no rhonchi, breath sounds equal. HEART: 4/6 systolic murmur, regular rate and rhythm. ABDOMEN: Soft, nontender, bowel sounds positive, no hernias, no peritonitis. EXTREMITIES: No cyanosis or edema, full range of motion of all the joints without pain or difficulty, no signs for acute trauma. NEUROLOGIC: Oriented x 3, no acute motor or sensory deficits, no focal weakness. SKIN: No rash, no jaundice, no diaphoresis. Medical Decision & Procedures Laboratory Results 07/22/17 10:26 07/22/17 10:26 Test 07/22/17 10:26 Red Blood Count 2.74 M/uL (4.2-5.4) Mean Corpuscular Volume 98.2 fL (80-100) Mean Corpuscular Hemoglobin 31.4 pg (25-34) Mean Corpuscular Hemoglobin Concent 32.0 g/dl (32-36) RDW Standard Deviation 54.5 fL (36.4-46.3) RDW Coefficient of Variation 15.3 % (11.5-14.5) Mean Platelet Volume 11.0 fL (7.4-10.4) Prothrombin Time 12.0 SECONDS (9.0-12.0) Prothromb Time International Ratio 1.1 (0.9-1.1) Activated Partial Thromboplast Time 29.7 SECONDS (21.0-31.0) Partial Thromboplastin Ratio 1.1 Anion Gap 9.0 mmol/L (3-11) Est Creatinine Clear Calc Drug Dose 34.4 ml/min Estimated GFR () 55.4 Estimated GFR (Non- 47.8 BUN/Creatinine Ratio 25.7 (10-20) Calcium Level 8.3 mg/dl (8.5-10.1) Laboratory results reviewed by me. Medications Administered Medications (Trade) Dose Ordered Sig/Carlos Route Start Time Stop Time Status Last Admin Dose Admin Oxymetazoline HCl (Afrin 0.05% Nasal [place]) 75 sprays STK-MED ONCE .ROUTE 07/22/17 08:51 07/22/17 08:52 DC 07/22/17 08:51 75 SPRAYS Nadolol (Corgard Tab) 20 mg NOW STAT PO 07/22/17 09:10 07/22/17 09:12 DC 07/22/17 09:21 20 MG Lisinopril (Zestril Tab) 5 mg NOW ONCE PO 07/22/17 09:15 12/26/17 09:16 DC 07/22/17 09:18 5 MG Labetalol HCl (Normodyne IV) 20 mg NOW STAT IV 07/22/17 10:17 07/22/17 10:19 DC 07/22/17 10:17 12.5 MG Sodium Chloride 500 ml @ 999 mls/hr Q31M STAT IV 07/22/17 10:30 07/22/17 11:00 DC 07/22/17 10:30 999 MLS/HR Sodium Chloride 500 ml @ 999 mls/hr Q31M STAT IV 07/22/17 10:35 07/22/17 11:05 DC 07/22/17 10:35 999 MLS/HR Procedure Nasal packing placement: Using lidocaine spray, the left side of the nose was anesthetized. A 7.5 cm Rhino pack was placed without complication and the balloon was inflated. This did seem to stop the bleeding. ED Course 0858: The patient was evaluated in room B10. A complete history and physical exam was performed. 0851: Ordered Oxymetazoline HCl 75 sprays Intranasally 0901 Lidocaine HCl 4 ml Intranasally 0910: Ordered Nadolol 20 mg PO 0915: Ordered Lisinopril 5 mg PO. 0954: I reassessed the patient at this time. Her blood pressure went up and she is still oozing. I increased pressure in her balloon. 1017: Ordered Labetalol HCl 20 mg IV 1030: Ordered Sodium Chloride 500 ml @ 999 mls/hr IV 1032: I reassessed the patient at this time. Her blood pressure has decreased significantly. She will be further evaluated. 1035: Ordered Sodium Chloride 500 ml @ 999 mls/hr IV 1108: I spoke with Dr. Julia Chin, hospitalist. We discussed the patients case. The patient will be evaluated by the [facility] for further management. Medical Decision The patient is a 73 year old female who presents to the ED with complaints of persistent nosebleed. Differential diagnoses considered include uncontrolled hypertension, anterior or posterior epistaxis, coagulopathy, nasal trauma, and nasal infection. There is no leukocytosis. The patient is anemic though with a hemoglobin of around 8. Renal panel testing shows a mildly elevated blood sugar, this would be consistent with her history of diabetes and her inability to take her meds today. Potassium mildly elevated but not critical. No coagulopathy. The patient presents with left sided epistaxis. She was hypertensive. I did place a left sided 7.5 cm Rhino pack. The balloon was inflated and this did seem to staunch the bleeding. She has some oozing but things were certainly much better controlled. No more blood running down the back of her throat. The patient was given her typical oral blood pressure medications. She was given nadolol and lisinopril orally. She also received a dose of IV labetalol to help lower the blood pressure. During the patient's hospital stay, she actually became hypotensive. She required IV saline and this did seem to rebound the blood pressure. Given the persistent nasal bleeding, given the anemia, given the bouts of hypertension and then hypotension, I did think a hospital stay was warranted. I did speak to the patient and the case work aide. The on-call hospitalist was consulted. If the patient's hemoglobin drops further, she may require a transfusion. Medication Reconcilliation Current Medication List: was personally reviewed by me Blood Pressure Screening Patient's blood pressure: Elevated blood pressure Blood pressure disposition: Referred to PCP Patient became hypotensive while in the ED, she is now stable. Consults Time Called: 1102 Consulting Physician: Dr. Julia Chin, hospitalist Returned Call: [address] Julia Chin, hospitalist. We discussed the patients case. The patient will be evaluated by the [facility] for further management. Impression Primary Impression: Epistaxis Additional Impressions: [place] Hypotension Scribe Attestation The scribe's documentation has been prepared under my direction and personally reviewed by me in its entirety. I confirm that the note above accurately reflects all work, treatment, procedures, and medical decision making performed by me. Departure Information Dispostion Being Evaluated By Hospitalist Referrals Rafal Steinberg MD (PCP) Patient Instructions My [facility] Problem Qualifiers
[2017-07-22] MEDS ORDERED: PRVC/20 PO (09:41)
[2017-07-22] MEDS: LABETALOL HCL IV 5 MG/ML 20ML IV STA ×2 (10:17→10:25)
[2017-07-22] MEDS ORDERED: SODIUM CHLORIDE 0.9% 500ML 500 ML IV STA ×2 (10:30→10:35)
[2017-07-22 10:40] LABS: HEMATOCRIT 26.9 % (37-47); HEMOGLOBIN 8.6 g/dL (12.0-16.0); MEAN CELL VOLUME 98.2 fL (80-100); MEAN CORPUSCULAR HEMOGLOBIN 31.4 pg (25-34); PLATELET COUNT 107 K/uL (130-400); RED CELL DISTRIBUTION WIDTH CV 15.3 % (11.5-14.5); RED CELL DISTRIBUTION WIDTH SD 54.5 fL (36.4-46.3); WHITE BLOOD COUNT 7.21 K/uL (4.8-10.8)
[2017-07-22 10:48] LABS: INR 1.1 (0.9-1.1); PTT PATIENT 29.7 SECONDS (21.0-31.0)
[2017-07-22 11:00] LABS: CALCIUM 8.3 mg/dl (8.5-10.1); CREATININE 1.13 mg/dl (0.60-1.20); POTASSIUM 5.6 mmol/L (3.5-5.1)
--- NOTE | 2017-07-22 11:30 | NUR ---
A/ID: 72 year old female in ED. Nosebleed, not able to control at home. History of nosebleeds. Possible admission/observation. Admission Assessment done. Code Word/Fall Agreement reviewed with patient and sons, and completed. Continued care in ED by BILL Medrano.
[2017-07-22] MEDS ORDERED: MAGNESIUM HYDROXIDE SUSP 30 ML UDC PO PRN (12:45)
[2017-07-22] MEDS ORDERED: ZOLPIDEM TARTRATE 5 MG TAB PO PRN ×2 (12:45)
[2017-07-22] MEDS ORDERED: GLUCOSE 40% GEL 15 GM TUBE PO PRN (12:45)
[2017-07-22] MEDS ORDERED: ONDANSETRON INJ 2 MG/ML 2 ML VIAL IV PRN (12:45)
[2017-07-22] MEDS ORDERED: GLUCOSE 10 TABS/TUBE PO PRN (12:45)
[2017-07-22] MEDS ORDERED: DEXTROSE 50% 50 ML SYR IV PRN (12:45)
[2017-07-22] MEDS ORDERED: ALUMINUM/MAGNESIUM/SIMETH (MAALOX MAX) 30 ML UDC PO PRN (12:45)
[2017-07-22] MEDS ORDERED: POLYETHYLENE (MIRALAX) 17 GM PACK PO PRN (12:45)
[2017-07-22] MEDS ORDERED: GLUCAGON FOR INJ 1 MG VIAL SQ PRN (12:45)
--- NOTE | 2017-07-22 12:58 | History and Physical ---
History & Physical Date & Time of Service: Jul 22, 2017 at 12:49 Chief Complaint: Nose Bleeding On Left Side Primary Care Physician: Rafal Steinberg MD History of Present Illness Source: patient, family 72 years old female with past medical history of hypertension, diabetes mellitus on oral hypoglycemic, severe arthritis and multiple orthopedic surgeries, spinal stenosis and recurrent epistaxis. Patient sees Dr. Ngo who had cauterized her nose multiple time and told her that surgical intervention on her nose can have risks that outweighs the benefit. She has been managing her epistaxis conservatively. One week ago she had a nasal bleed for about 1 hour but she was able to control it by herself at home. Today she also had nasal bleed that she failed to control by herself at home using nasal spray, Q-tips, cotton balls and nasal clamp On arrival she appeared pale, ER physician attempted and successfully was able to protect her nose. But her blood pressure dropped to 70/40. Required significant IV fluid resuscitation to bring her pressure again up. Her hemoglobin also dropped from 11.5 last admission to 8.6 today She admits to taking 2 tablets of ibuprofen yesterday for her left shoulder pain Past Medical/Surgical History Medical Problems: (1) Acute posterior epistaxis Status: Resolved (2) Aortic Valve Disorder Status: Chronic (3) Bladder Neoplasm Nos Status: Resolved (4) Diabetes Status: Chronic (5) Epistaxis Status: Resolved (6) Epistaxis Status: Resolved (7) Epistaxis Status: Resolved (8) Epistaxis Status: Resolved (9) Epistaxis Status: Resolved (10) Fracture of fifth metacarpal bone Status: Resolved (11) Hyperlipidemia Nec/Nos Status: Chronic (12) Hypertension Status: Chronic (13) Tricuspid Valve Disease Status: Chronic Surgical Problems: (1) History of shoulder replacement Status: Resolved (2) Previous back surgery Status: Resolved Family History Diabetes mellitus FH: bladder cancer FH: heart disease Social History Smoking Status: Former Smoker Drug Use: none Marital Status: single Housing status: lives alone Occupational Status: retired Immunizations History of Influenza Vaccine: Yes Influenza Vaccine Date: Sep 27, 2009 History of Tetanus Vaccine?: No History of Pneumococcal: No Pneumococcal Date: Sep 27, 2009 History of Hepatitis B Vaccine: No Multi-Drug Resistant Organisms History of MDRO: No Allergies Coded Allergies: Doxycycline (Verified Allergy, Intermediate, RASH, 07/22/17) Tetracycline (Verified Allergy, Intermediate, RASH, 07/22/17) Iodine (Verified Allergy, Unknown, Unknown rxn, 07/22/17) Home Medications Scheduled Cyclosporine (Ophth) (Restasis), 1 DROP OPB Q12 Ferrous Sulfate (Kp Ferrous Sulfate), 325 MG PO TID Fluocinonide (Lidex 0.05% Cream), 1 APPLN TOP DIRECTED Furosemide (Furosemide), 20 MG PO DAILY Glipizide (Glipizide), 5 MG PO BID Lisinopril (Lisinopril), 5 MG PO QAM Loperamide-Simethicone (Imodium Multi-Symptom Rel), 1 TAB PO HS Metformin Hcl (Glucophage), 500 MG PO BID Mupirocin 2% (Bactroban 2%), 1 APPLN EXT BID Nadolol (Corgard), 20 MG PO QAM Omeprazole (Prilosec), 20 MG PO QAM Pravastatin Sod (Pravastatin Sodium), 20 MG PO QAM Scheduled PRN Oxycodone Hcl (Oxycodone Hcl), 5 MG PO Q4H PRN for Pain Pramoxine Hcl-Zinc Oxide (Tronolane), 1 APPLN TOP DAILY PRN for Hemorrhoids Review of Systems Constitutional: + weakness, + fatigue, No fever, No chills, No sweats, No weight loss, No problem reported Eyes: No worsening of vision, No eye pain, No redness, No discharge, No diplopia, No problem reported ENT: + unusual epistaxis, No hearing loss, No nasal symptoms, No sore throat, No tinnitus, No dental problems, No trouble swallowing, No problem reported Respiratory: No cough, No sputum, No wheezing, No shortness of breath, No dyspnea on exertion, No dyspnea at rest, No hemoptysis, No problem reported Cardiovascular: No chest pain, No orthopnea, No PND, No edema, No claudication , No palpitations, No problem reported Abdomen: No pain, No nausea, No vomiting, No diarrhea, No constipation, No GI bleeding, No problem reported Musculoskeletal: No joint pain, No muscle pain, No swelling, No calf pain, No problem reported Genitourinary - Female: No dysuria, No urinary frequency, No urinary urgency, No urinary incontinence, No urinary retention, No hematuria, No dysmenorrhea, No menorrhagia, No metrorrhagia, No rash, No vaginal bleeding, No vaginal discharge, No vaginal itching, No vulvodynia, No , No problem reported Neurologic: No memory loss, No paralysis, No weakness, No numbness/tingling, No vertigo, No balance problems, No problem reported Psychiatric: No depression symptoms, No anhedonism, No anxiety, No insomnia, No substance abuse, No problem reported Endocrine: No fatigue, No excessive thirst, No excessive urination, No problem reported Hematologic / Lymphatic: No abnormal bleeding/bruising, No clotting problems, No swollen lymph nodes, No night sweats, No problem reported Integumentary: No rash, No itch, No new/changing skin lesions, No color change , No bleeding, No problem reported Allergic / Immunologic: No environmental allergies, No seasonal allergies, No pet sensitivities, No food allergies, No hives, No frequent infections, No poor healing, No prolonged convalescence, No problem reported Physical Exam Vital Signs Date Time Temp Pulse Resp B/P (MAP) Pulse Ox O2 Delivery O2 Flow Rate FiO2 07/22/17 11:27 87 142/71 07/22/17 10:43 81 18 119/56 97 Room Air 07/22/17 10:31 82 20 74/55 98 07/22/17 10:25 82 18 165/95 97 Room Air 07/22/17 10:14 85 07/22/17 08:45 36.4 91 18 172/87 96 Room Air General Appearance: + mild distress, + thin Head: normocephalic, atraumatic Eyes: normal inspection, EOMI ENT: + pertinent finding (nose is packed with large gauze that appears to be soaked in blood) Neck: supple Respiratory/Chest: chest non-tender, lungs clear, normal breath sounds, no respiratory distress, no accessory muscle use Cardiovascular: regular rate, rhythm, no edema, no gallop, no JVD, + systolic murmur Abdomen/GI: non tender, soft, no organomegaly, no pulsatile mass Back: normal inspection, no CVA tenderness Extremities/Musculoskelatal: normal inspection, no calf tenderness, normal capillary refill, no pedal edema, normal range of motion Neurologic/Psych: telephone quotation clerk II-XII nml as tested, no motor/sensory deficits, alert, normal mood/affect, normal reflexes, oriented x 3 Skin: normal color, warm/dry, no rash Diagnostics Laboratory Results Results Past 24 Hours Test 07/22/17 10:26 07/22/17 12:39 Range/Units White Blood Count 7.21 4.8-10.8 K/uL Red Blood Count 2.74 4.2-5.4 M/uL Hemoglobin 8.6 12.0-16.0 g/dL Hematocrit 26.9 37-47 % Mean Corpuscular Volume 98.2 80-100 fL Mean Corpuscular Hemoglobin 31.4 25-34 pg Mean Corpuscular Hemoglobin Concent 32.0 32-36 g/dl RDW Standard Deviation 54.5 36.4-46.3 fL RDW Coefficient of Variation 15.3 11.5-14.5 % Platelet Count 107 130-400 K/uL Mean Platelet Volume 11.0 7.4-10.4 fL Prothrombin Time 12.0 9.0-12.0 SECONDS Prothromb Time International Ratio 1.1 0.9-1.1 Activated Partial Thromboplast Time 29.7 21.0-31.0 SECONDS Partial Thromboplastin Ratio 1.1 Sodium Level 132 136-145 mmol/L Potassium Level 5.6 3.5-5.1 mmol/L Chloride Level 101 98-107 mmol/L Carbon Dioxide Level 22 21-32 mmol/L Anion Gap 9.0 3-11 mmol/L Blood Urea Nitrogen 29 7-18 mg/dl Creatinine 1.13 0.60-1.20 mg/dl Est Creatinine Clear Calc Drug Dose 34.4 ml/min Estimated GFR () 55.4 Estimated GFR (Non- 47.8 BUN/Creatinine Ratio 25.7 10-20 Random Glucose 204 70-99 mg/dl Calcium Level 8.3 8.5-10.1 mg/dl Impression Assessment and Plan 72-year-old female with past history of hypertension, diabetes this oral hypoglycemic and multiple joint degenerative disease presented to the ED with recurrent massive epistaxis. Assessment recurrent significant epistaxis status post nasal packing, currently appears to be under control Hypovolemic shock secondary to above Acute blood loss anemia Hypertension but currently hypotensive as mentioned above Diabetes mellitus on oral hypoglycemic Multiple joint degenerative disease Cardiac murmur/patient is aware of Plan Admit patient to telemetry 2 units blood transfusion Consent has been obtained and ordered Hold blood pressure medications Meanwhile will add hydralazine 10 mg IV for systolic blood pressure more than 165 Hold hypoglycemic medications, Start patient on sliding scale insulin and obtain hemoglobin A1c in order to be able to adjust insulin dose Hold of pharmacologic DVT prophylaxis, ALMA aguilar I paged her ENT physician Dr. Ngo and waiting for call back, will consult ENT to be on board Patient was instructed not to take Motrin/ibuprofen for any pain medications [id number] except Tylenol We'll start her on Ultram for moderate to severe pain VTE Prophylaxis VTE Risk Assessment Done? Y/N: Yes Risk Level: Moderate Given or contraindicated: SCD's
[2017-07-22] MEDS ORDERED: HydrALAZINE HCL 20 MG/ML VIAL IV. PRN (13:00)
[2017-07-22] MEDS ORDERED: OXYCODONE HCL IR 5 MG TAB (IMMEDIATE RELEASE) PO PRN (13:15)
--- NOTE | 2017-07-22 13:50 | NUR ---
A: Admitted to room 233 at this time. Patient is A&Ox4. Pleasant and cooperative. Denies pain/discomfort. gambling monitor applied and reading NSR. Audible heart murmur. +1 BLE edema. Pulses are palpable. VSS. Lung sounds are clear throughout on RA. +BS. Last BM was yesterday per patient. Wears incontinence brief. DTV. Open area to right buttock - barrier cream applied. Educated patient on weight shifts and frequent repositioning. Oriented to room and call hook. Call hook is within reach. Will continue to monitor.
[2017-07-22] MEDS: RESTASIS~ORDER AWAITING ACTION SCH (14:06)
[2017-07-22 14:22] LABS: HEMATOCRIT 22.6 % (37-47); HEMOGLOBIN 7.2 g/dL (12.0-16.0)
[2017-07-22] MEDS ORDERED: FLUOCINONIDE 0.05% CR 15 GM TUBE EXT PRN (14:30)
--- NOTE | 2017-07-22 16:00 | NUR ---
A: pt is alert and oriented x4. no complaints of pain or sob. lungs are diminished throughout. She is SR on the radiation monitor. PRBC running at 125ml/hr into right wrist. scd's to be placed on patient. She has an open area on right buttocks, cream applied. see emr for full overnight babysitter. call hook in reach. will continue to monitor the patient.
[2017-07-22] MEDS: INSULIN ASPART 100 UNITS/ML 3 ML PEN SC SCH ×2 (17:18→21:00)
[2017-07-22] MEDS: FERROUS SULFATE 325 MG TAB PO SCH (19:24)
[2017-07-22] MEDS: MUPIROCIN 2% OINT 22 GM TUBE EXT SCH (19:25)
--- NOTE | 2017-07-22 20:00 | NUR ---
pt resting in bed. 1 assist oob. sr on director of cardiac cath lab. 2nd unit currently hanging. vss. see emr for full customer operations intern. call hook in reach. will continue to monitor the patient.
[2017-07-22 23:38] LABS: HEMOGLOBIN 11.4 g/dL (12.0-16.0)
--- NOTE | 2017-07-23 | NUR ---
aa&ox4,vss,denies pain,resting in bed,call hook in reach,will continue to monitor
[2017-07-23 03:51] VITALS: BP 154/73; PULSE 91; TEMP 36.8; O2SAT 95
--- NOTE | 2017-07-23 04:00 | NUR ---
assessment unchanged,minimal assist to toilet,call hook in reach,will continue to monitor
[2017-07-23 04:53] LABS: BASO % 0.3 %; BASO ABS # 0.02 K/uL (0-0.2); EOS % 0.8 %; EOS ABS # 0.06 K/uL (0-0.5); HEMOGLOBIN 10.7 g/dL (12.0-16.0); IG# 0.02 K/uL (0.00-0.02); LYMPH % 8.4 %; LYMPH ABS # 0.66 K/uL (1.2-3.4); MEAN CELL VOLUME 89.9 fL (80-100); MEAN CORPUSCULAR HEMOGLOBIN 30.1 pg (25-34); MEAN CORPUSCULAR HGB CONC 33.4 g/dl (32-36); MEAN PLATELET VOLUME 11.9 fL (7.4-10.4); MONO % 8.4 %; MONO ABS # 0.66 K/uL (0.11-0.59); NEUT % 81.8 %; NEUT ABS # 6.46 K/uL (1.4-6.5); PLATELET COUNT 107 K/uL (130-400); RED CELL DISTRIBUTION WIDTH CV 18.8 % (11.5-14.5); RED CELL DISTRIBUTION WIDTH SD 62.1 fL (36.4-46.3); WHITE BLOOD COUNT 7.88 K/uL (4.8-10.8)
[2017-07-23 05:23] LABS: ALBUMIN 2.5 gm/dl (3.4-5.0); CREATININE 0.78 mg/dl (0.60-1.20); POTASSIUM 4.5 mmol/L (3.5-5.1); TOTAL PROTEIN 6.9 gm/dl (6.4-8.2)
[2017-07-23 06:20] LABS: HEMOGLOBIN A1C 5.5 % (4.5-5.6)
[2017-07-23 08:00] VITALS: BP 148/76; PULSE 93; TEMP 37.3; O2SAT 96
[2017-07-23] MEDS ORDERED: MAGNESIUM SULFATE 1GM / D5W 1 GM in PREMIXED IN D5W 100 ML IV ONE (08:00)
[2017-07-23] MEDS: RESTASIS~ORDER AWAITING ACTION SCH ×4 (08:00→21:33)
--- NOTE | 2017-07-23 08:00 | NUR ---
regarding "orders awaiting action" pt states she will have her son bring meds in
--- NOTE | 2017-07-23 08:00 | NUR ---
a: assessment completed, no changes noted from prev shift verbal report. a/o. resting comfortably sitting up in bed. rhinorocket L nare, serous drainage via R, bloody ooze back of throat. lungs cta. SR. + bm early this a.m., tolerating diet well. voids in hat/toilet. SL. small open areas buttocks r/t incont urine. moisture barrier applied, brief changed. denies c/o. reviewed plan of care.
--- NOTE | 2017-07-23 08:42 | Clinical Documentation Query ---
JOCE Higgins : CLINICAL DOCUMENTATION QUERY Patient is a 72 year old female admitted for treatment of epistaxis and associated acute blood loss anemia, hypotension. Nursing note includes documentation of an "open area on right buttocks". No provider documentation regarding integumentary lesions exists. Please assess and document accordingly as hospital acquired pressure ulcers are patient safety indicators (PSI's) which attract third green party review and affect quality measures of physician and hospital performance. Thank you. In your clinical opinion is this patient being managed for: ( x ) Pressure ulcer of right buttock, stage 2 ( ) Not Agree ( ) Other explanation of clinical findings (Please Explain) ( ) Unable to determine (Please Define) ( ) Need to Discuss The medical record reflects the following clinical findings, treatment, and risk factors. Clinical Indicators: As above Treatment: Off loading, lotion Risk Factors: Age, immobility, poor nutrition. Please clarify and document your clinical opinion in the progress notes and discharge summary. Terms such as "probable", "suspected", "likely", "questionable", "possible", or "still to be ruled out" are acceptable. IF IN AGREEMENT, YOU MUST DOCUMENT ABOVE DIAGNOSTIC STATEMENT IN DAILY PROGRESS NOTES AND DISCHARGE SUMMARY. This document is not part of the patient's record. Thank You, Arpan De Jesus, RN [phone]
[2017-07-23] MEDS: MUPIROCIN 2% OINT 22 GM TUBE EXT SCH ×2 (09:00→21:00)
[2017-07-23] MEDS: INSULIN ASPART 100 UNITS/ML 3 ML PEN SC SCH ×4 (09:11→21:32)
[2017-07-23] MEDS: PANTOprazole SOD 40 MG TAB PO SCH (09:14)
[2017-07-23] MEDS: FERROUS SULFATE 325 MG TAB PO SCH ×3 (09:14→21:29)
[2017-07-23] MEDS: PRAVASTATIN SOD 20 MG TAB PO SCH (09:15)
[2017-07-23 12:00] VITALS: BP 153/69; PULSE 93; TEMP 36.7; O2SAT 97
--- NOTE | 2017-07-23 12:00 | NUR ---
a: ac bsg 262 (average 2 measurements.) notified earlier and will modify insulin orders. up to brp, a.m. care with assist at sink, good activity tolerance. noted small open area R buttock, aloe 3 applied after cleansing and assisting pt with brief change. reassessed as charted. no changes.
--- NOTE | 2017-07-23 12:45 | NUR ---
dr conrad just finishing with pt. he also spoke with pt's relative on the phone
[2017-07-23] MEDS: ACETAMINOPHEN 325 MG TAB PO PRN ×2 (12:52→22:14)
[2017-07-23 13:11] LABS: HEMATOCRIT 31.7 % (37-47); HEMOGLOBIN 10.7 g/dL (12.0-16.0)
--- NOTE | 2017-07-23 15:16 | Progress Note ---
Subjective Date of Service: Jul 23, 2017. Subjective This pt is stable with left nare with rhino rocket type device in place. she has concerns about suggested surgical intervention that Dr Galdamez suggested, she did receive blood transfusion on intake due to severity of bleeding. currently is without pain Problem List Medical Problems: (1) [place] Status: Acute (2) Aortic Valve Disorder Status: Chronic (3) Closed head injury Status: Acute (4) Diabetes Status: Chronic (5) Facial contusion Status: Acute (6) Hyperlipidemia Nec/Nos Status: Chronic (7) Hypertension Status: Chronic (8) Hypotension Status: Acute (9) Patella fracture Status: Acute (10) Right hip pain Status: Acute (11) Tricuspid Valve Disease Status: Chronic Review of Systems Constitutional: + weakness, + fatigue, No fever, No chills ENT: + unusual epistaxis Respiratory: No cough, No shortness of breath, No dyspnea on exertion Cardiac: No chest pain, No edema Abdomen: No pain, No nausea, No vomiting, No diarrhea Neurologic: No memory loss, No weakness Objective Vital Signs Date Time Temp Pulse Resp B/P (MAP) Pulse Ox O2 Delivery O2 Flow Rate FiO2 07/23/17 12:00 36.7 93 18 153/69 (97) 97 Room Air 07/23/17 12:00 Room Air 07/23/17 08:00 Room Air 07/23/17 08:00 37.3 93 22 148/76 (100) 96 Room Air 07/23/17 04:00 Room Air 07/23/17 03:51 36.8 91 18 154/73 (100) 95 Room Air 07/23/17 00:00 Room Air 07/22/17 23:06 36.8 94 17 150/67 (94) 96 Room Air 07/22/17 21:33 36.8 90 20 154/77 (102) 95 07/22/17 21:20 89 177/81 (113) 96 07/22/17 20:37 99 20 165/77 (106) 95 07/22/17 20:07 90 20 169/67 (101) 95 07/22/17 20:00 Room Air 07/22/17 19:00 36.8 89 140/66 (90) 07/22/17 18:30 36.9 93 20 167/70 97 07/22/17 18:30 93 20 167/70 (102) 97 07/22/17 18:18 36.8 89 20 147/79 97 07/22/17 17:36 92 16 127/73 97 07/22/17 16:50 36.7 20 135/67 (89) 98 Room Air 07/22/17 16:36 89 20 114/64 98 07/22/17 16:00 95 Room Air 07/22/17 15:54 36.5 87 18 109/50 (69) 97 Room Air 07/22/17 15:44 37.0 86 18 128/69 98 07/22/17 15:37 87 20 116/67 98 07/22/17 15:18 36.5 87 20 111/65 94 Physical Exam General Appearance: WD/WN, + mild distress Eyes: normal inspection, sclerae normal ENT: + pertinent finding (left nare with packing in place) Neck: supple, no JVD Respiratory/Chest: chest non-tender, lungs clear Cardiovascular: regular rate, rhythm, + systolic murmur Abdomen: normal bowel sounds, non tender, soft Extremities: no pedal edema, no calf tenderness Neurologic/Psychiatric: alert, oriented x 3 Laboratory Results Last 24 Hours Test 07/22/17 15:58 07/22/17 20:38 07/22/17 22:39 07/23/17 04:21 Bedside Glucose 274 mg/dl 170 mg/dl Hemoglobin 11.4 g/dL 10.7 g/dL Hematocrit 34.0 % 32.0 % White Blood Count 7.88 K/uL Red Blood Count 3.56 M/uL Mean Corpuscular Volume 89.9 fL Mean Corpuscular Hemoglobin 30.1 pg Mean Corpuscular Hemoglobin Concent 33.4 g/dl Platelet Count 107 K/uL Mean Platelet Volume 11.9 fL Neutrophils (%) (Auto) 81.8 % Lymphocytes (%) (Auto) 8.4 % Monocytes (%) (Auto) 8.4 % Eosinophils (%) (Auto) 0.8 % Basophils (%) (Auto) 0.3 % Neutrophils # (Auto) 6.46 K/uL Lymphocytes # (Auto) 0.66 K/uL Monocytes # (Auto) 0.66 K/uL Eosinophils # (Auto) 0.06 K/uL Basophils # (Auto) 0.02 K/uL RDW Standard Deviation 62.1 fL RDW Coefficient of Variation 18.8 % Immature Granulocyte % (Auto) 0.3 % Immature Granulocyte # (Auto) 0.02 K/uL Sodium Level 130 mmol/L Potassium Level 4.5 mmol/L Chloride Level 100 mmol/L Carbon Dioxide Level 23 mmol/L Anion Gap 7.0 mmol/L Blood Urea Nitrogen 29 mg/dl Creatinine 0.78 mg/dl Est Creatinine Clear Calc Drug Dose 49.8 ml/min Estimated GFR () 86.8 Estimated GFR (Non- 74.9 BUN/Creatinine Ratio 37.8 Random Glucose 200 mg/dl Estimated Average Glucose 111 mg/dl Hemoglobin A1c 5.5 % Calcium Level 8.0 mg/dl Magnesium Level 1.6 mg/dl Total Bilirubin 2.0 mg/dl Aspartate Amino Transf (AST/SGOT) 34 U/L Alanine Aminotransferase (ALT/SGPT) 27 U/L Alkaline Phosphatase 66 U/L Total Protein 6.9 gm/dl Albumin 2.5 gm/dl Globulin 4.4 gm/dl Albumin/Globulin Ratio 0.6 Test 07/23/17 06:55 07/23/17 11:21 07/23/17 12:43 Bedside Glucose 183 mg/dl 267 mg/dl Hemoglobin 10.7 g/dL Hematocrit 31.7 % Assessment and Plan 72-year-old female recurrent massive epistaxis, with past history of hypertension, diabetes this oral hypoglycemic and multiple joint degenerative disease Recurrent significant epistaxis status post nasal packing, currently under control per evaluation by ENT, consider intervention this week if pt agrees Hypovolemic shock secondary, Acute blood loss anemia, 2 units blood transfusion and ivf have resolved Diabetes mellitus on oral hypoglycemic, has had some challenges with glucose control since oral meds held will tighten ssi Multiple joint degenerative disease Tylenol and Ultram for moderate to severe pain Cardiac murmur/patient is aware of Hold of pharmacologic DVT prophylaxis, SCD boots Pressure ulcer right buttock stage 2, with local measures
--- NOTE | 2017-07-23 15:28 | ENT CONSULTATION ---
DATE OF CONSULTATION: 07/23/2017 DATE OF CONSULTATION: 07/23/2017 DIAGNOSIS: Epistaxis and chronic sinusitis. HISTORY OF PRESENT ILLNESS: A 72-year-old lady with a history of hypertension, diabetes, arthritis and spinal stenosis developed recurrent epistaxis for the last 3 months. She has had episodes of bleeding for the last 2 years, treated by Dr. Ngo with cautery in the office; however yesterday she started bleeding and presented to the ER and hemoglobin went down from 11.5 at the last admission to 8.6 and as low as 7.2 grams. Because of the bleeding, she was admitted and transfused 2 units of blood. PAST MEDICAL HISTORY: Pertinent for aortic valve disease and arthritis. PREVIOUS SURGERIES: Back surgery and shoulder replacement. MEDICATIONS: Include Lasix, glipizide, lisinopril, metformin. ALLERGIES: DOXYCYCLINE, TETRACYCLINE AND IODINE. FAMILY HISTORY: Negative. SOCIAL HISTORY: Former smoker. PHYSICAL EXAMINATION: GENERAL: WN/WD female with packing in the left nostril. HEAD: Normocephalic. EYES: Normal. EARS: Tympanic membranes intact. NOSE: Nasal passages showed epistat in the left nostril. Endoscopy was performed on the right side of the nose, there was no evidence of bleeding. There was a clot at the posterior end of the nasopharynx, but no active bleeding noted. THROAT: Oropharynx normal. NECK: Supple. The CT scans were reviewed. 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 PLAN: For either endoscopic cautery with endoscopic sinus surgery to evaluate the expansile left ethmoid mucocele which could also be a polyp or some other tumor, in addition must R/O malignancy. The other choice is to leave the packing in and then have Dr. Ngo remove the packing on Friday. Both of these options were explained at length to the patient and to the patient's son by cell phone. They both appear to understand and will make a decision. FRANK
[2017-07-23 15:50] VITALS: BP 148/76; PULSE 90; TEMP 37; O2SAT 95
--- NOTE | 2017-07-23 16:00 | NUR ---
a: visiting with son and gdtr, dangling bedside. reassessed as charted. hemostasis L nare. minimal serous drainage R. last hbg stable. pt denies c/o. see emr further detail.
--- NOTE | 2017-07-23 17:00 | NUR ---
ac bsg 266 despite tightened novolog coverage at lunch time, aware. considering add'n of lantus, awaiting orders.
[2017-07-23] MEDS ORDERED: LANTUS PER UNIT CHARGE SC ONE (17:15)
[2017-07-23 19:33] VITALS: BP 137/72; PULSE 95; TEMP 36.5; O2SAT 96
--- NOTE | 2017-07-23 20:00 | NUR ---
aa&ox4,vss,denies pain,call hook in reach,will continue to monitor
[2017-07-23 20:49] LABS: HEMATOCRIT 31.3 % (37-47); HEMOGLOBIN 10.5 g/dL (12.0-16.0)
--- NOTE | 2017-07-23 21:50 | NUR ---
pt able to walk up to main nurses station and back with walker tolerated well
[2017-07-23 23:43] VITALS: BP 132/74; PULSE 94; TEMP 36.9; O2SAT 95
[2017-07-24] VITALS (9 sets, daily range): BP systolic 86–158; BP diastolic 54–75; PULSE 82–94; TEMP 36.6–37.2; O2SAT 94–96
--- NOTE | 2017-07-24 04:00 | NUR ---
aa&ox4,ambulating to toilet with minimal assistance,denies current pain,call hook in reach,will continue to monitor
[2017-07-24 04:31] LABS: HEMATOCRIT 30.8 % (37-47); HEMOGLOBIN 10.4 g/dL (12.0-16.0)
[2017-07-24] MEDS: TRAMADOL HCL 50 MG TAB PO PRN ×2 (06:21→13:04)
[2017-07-24] MEDS: RESTASIS~ORDER AWAITING ACTION SCH ×2 (08:00→15:38)
[2017-07-24] MEDS: FERROUS SULFATE 325 MG TAB PO SCH ×3 (08:30→21:24)
[2017-07-24] MEDS: PRAVASTATIN SOD 20 MG TAB PO SCH (08:30)
[2017-07-24] MEDS: PANTOprazole SOD 40 MG TAB PO SCH (08:30)
[2017-07-24] MEDS: MUPIROCIN 2% OINT 22 GM TUBE EXT SCH ×2 (08:31→21:00)
[2017-07-24] MEDS: INSULIN ASPART 100 UNITS/ML 3 ML PEN SC SCH ×4 (08:33→21:34)
[2017-07-24] MEDS: INSULIN GLARGINE SOLOSTAR 100 UNITS/ML 3 ML PEN SC SCH ×2 (10:13→21:35)
[2017-07-24] MEDS: ACETAMINOPHEN 325 MG TAB PO PRN (14:41)
--- NOTE | 2017-07-24 16:43 | Progress Note ---
Subjective Date of Service: Jul 24, 2017. Subjective there is no new bleeding seen, scheduled for OR tomorrow to evaluate mass in ethmoids. Her son was updated at bedside Problem List Medical Problems: (1) [place] Status: Acute (2) Aortic Valve Disorder Status: Chronic (3) Closed head injury Status: Acute (4) Diabetes Status: Chronic (5) Facial contusion Status: Acute (6) Hyperlipidemia Nec/Nos Status: Chronic (7) Hypertension Status: Chronic (8) Hypotension Status: Acute (9) Patella fracture Status: Acute (10) Right hip pain Status: Acute (11) Tricuspid Valve Disease Status: Chronic Review of Systems Constitutional: + weakness, No fever, No chills Respiratory: No cough, No shortness of breath Cardiac: No chest pain, No edema Abdomen: No pain, No nausea, No vomiting, No diarrhea Female : No dysuria, No hematuria Neurologic: No memory loss, No weakness Psychiatric: No depression symptoms, No anhedonism, No anxiety Objective Vital Signs Date Time Temp Pulse Resp B/P (MAP) Pulse Ox O2 Delivery O2 Flow Rate FiO2 07/24/17 16:00 Room Air 07/24/17 12:00 Room Air 07/24/17 11:44 36.6 92 16 100/59 (73) 96 07/24/17 08:00 Room Air 07/24/17 07:29 36.8 94 18 148/75 (99) 96 07/24/17 04:00 Room Air 07/24/17 03:50 37.2 92 18 151/75 (100) 94 Room Air 07/24/17 00:00 Room Air 07/23/17 23:43 36.9 94 17 132/74 (93) 95 07/23/17 20:00 Room Air 07/23/17 19:33 36.5 95 16 137/72 (93) 96 Room Air Physical Exam General Appearance: no apparent distress, + thin Eyes: PERRL, EOMI Respiratory/Chest: chest non-tender, lungs clear, normal breath sounds Cardiovascular: regular rate, rhythm, no murmur Abdomen: normal bowel sounds, non tender, soft Extremities: no pedal edema, no calf tenderness Neurologic/Psychiatric: alert, oriented x 3 Laboratory Results Last 24 Hours Test 07/23/17 20:31 07/23/17 21:04 07/24/17 04:11 07/24/17 06:16 Hemoglobin 10.5 g/dL 10.4 g/dL Hematocrit 31.3 % 30.8 % Bedside Glucose 242 mg/dl 159 mg/dl Test 07/24/17 11:13 Bedside Glucose 288 mg/dl Assessment and Plan 72-year-old female recurrent massive epistaxis, with past history of hypertension, diabetes this oral hypoglycemic and multiple joint degenerative disease Recurrent significant epistaxis status post nasal packing, currently under control per evaluation by ENT will take to OR to have mass seen on CT evaluated Hypovolemic shock secondary, Acute blood loss anemia, 2 units blood transfusion and remains stable Diabetes mellitus on oral hypoglycemic, continues to have high glucose and have started lantus 10 units bid Multiple joint degenerative disease Tylenol and Ultram for moderate to severe pain Cardiac murmur/patient is aware Hold of pharmacologic DVT prophylaxis, SCD boots Pressure ulcer right buttock stage 2, with local measures
--- NOTE | 2017-07-24 16:53 | PROGRESS NOTE ---
DATE: 07/24/2017 DIAGNOSIS: Epistaxis and chronic sinusitis. SUBJECTIVE: The patient still feels pressure of the left naris, but has experienced no further bleeding. OBJECTIVE: Her hemoglobin has stabilized at 10.4 after the transfusions. There is no sign of bleeding from the nares. The left side epistat is in place. 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 PLAN: Because of the findings on CT scan and the long history of recurrent epistaxis the patient and her two sons, all three desire to proceed with endoscopic sinus surgery and endoscopic cautery. They do understand that this may not control the bleeding and that she may need embolization to control the bleeding. Also, they are aware of a very small chance of having a tumor in the left ethmoid versus a mucocele. They all three agreed that they would like to proceed with surgery due to the frequency and the length of time that she has had these recurrent episodes of bleeding.
--- NOTE | 2017-07-24 20:00 | NUR ---
A: patient alert and oriented. hypotension noted at 86/52, but asymptomatic previously running hypertensive. oob with minimal assistance. NSR. lungs clear on room air. tolerating PO. saline lock in right wrist patent. bsa x 4, admits to passing gas, bowel movement on previous shift. +2 pitting edema to RLE, trace to LLE. Patient to go to OR tomorrow for washout and bx of sinus mass seen on CT with Dr. Galdamez. Pt to be transferred to medical/surgical floor.
--- NOTE | 2017-07-24 20:27 | NUR ---
A: report called to Joselin Ramires RN to assume care of patient being transferred to [facility]
[2017-07-25] VITALS (16 sets, daily range): BP systolic 88–155; BP diastolic 54–79; PULSE 90–100; TEMP 36.3–36.8; O2SAT 92–100; Ht 149.9 cm; Wt 59.6 kg
[2017-07-25] MEDS ORDERED: NURSING VERBAL MED ORDER ONE ×3 (00:30→20:45)
[2017-07-25] MEDS: INSULIN ASPART 100 UNITS/ML 3 ML PEN SC SCH ×5 (00:52→21:00)
[2017-07-25 06:11] LABS: HEMATOCRIT 28.9 % (37-47); HEMOGLOBIN 9.6 g/dL (12.0-16.0); MEAN CELL VOLUME 91.5 fL (80-100); MEAN CORPUSCULAR HEMOGLOBIN 30.4 pg (25-34); MEAN CORPUSCULAR HGB CONC 33.2 g/dl (32-36); MEAN PLATELET VOLUME 10.8 fL (7.4-10.4); PLATELET COUNT 105 K/uL (130-400); RED CELL DISTRIBUTION WIDTH CV 17.3 % (11.5-14.5); RED CELL DISTRIBUTION WIDTH SD 57.5 fL (36.4-46.3); WHITE BLOOD COUNT 6.71 K/uL (4.8-10.8)
[2017-07-25 06:21] LABS: PTT PATIENT 29.4 SECONDS (21.0-31.0)
[2017-07-25 06:47] LABS: CREATININE 0.7 mg/dl (0.60-1.20); POTASSIUM 4.5 mmol/L (3.5-5.1)
[2017-07-25] MEDS ORDERED: FENTANYL CITRATE INJ 50 MCG/1 ML 2 ML VIAL ONE (06:47)
[2017-07-25] MEDS ORDERED: LIDOCAINE HCL 2% 2 ML VIAL (20MG/ML) ONE (06:47)
[2017-07-25] MEDS ORDERED: PROPOFOL IV EMULSION 10 MG/ML 20 ML VIAL IV ONE (06:47)
[2017-07-25] MEDS ORDERED: ONDANSETRON INJ 2 MG/ML 2 ML VIAL IV PRN (07:00)
[2017-07-25] MEDS ORDERED: EpHEDrine SULFATE INJ 50 MG/ML AMP IV PRN (07:00)
[2017-07-25] MEDS ORDERED: ATROPINE SULFATE 0.1 MG/ML 5ML SYR IV PRN (07:00)
[2017-07-25] MEDS ORDERED: FENTANYL CITRATE INJ 50 MCG/1 ML 2 ML VIAL IV PRN (07:00)
--- NOTE | 2017-07-25 07:00 | History & Physical Bridge Note ---
H&P Re-Evaluation Bridge Note: I have examined the patient, reviewed the History & Physical and in the interval since the performance of the History & Physical I have noted the following changes of clinical significance: No changes noted
[2017-07-25] MEDS ORDERED: CEFAZOLIN SOD 2000MG/15 ML IV PUSH IV ONE (07:03)
[2017-07-25] MEDS ORDERED: GELATIN SPONGE 12-7MM ONE (07:12)
[2017-07-25] MEDS ORDERED: EpINEphrine INJ 1MG/ML AMP 1 MG/ML AMP ONE (07:13)
[2017-07-25] MEDS ORDERED: LIDOCAINE 4% INH SOLN 4 ML BTL ONE (07:13)
[2017-07-25] MEDS ORDERED: BACITRACIN OINT 15 GM TUBE ONE (07:13)
[2017-07-25] MEDS ORDERED: LIDO 2%/EPINEPHRINE 1:100000 20 ML VIAL INFIL ONE (07:13)
[2017-07-25] MEDS ORDERED: TRIAMCINOLONE ACET 40 MG/ML VIAL ONE (07:13)
[2017-07-25] MEDS ORDERED: MIDAZOLAM HCL 1 MG/ML 2ML VIAL ONE (07:14)
[2017-07-25] MEDS ORDERED: NURSING VERBAL MED ORDER STA (07:23)
[2017-07-25] MEDS: PRAVASTATIN SOD 20 MG TAB PO SCH (09:00)
[2017-07-25] MEDS: PANTOprazole SOD 40 MG TAB PO SCH (09:00)
[2017-07-25] MEDS: FERROUS SULFATE 325 MG TAB PO SCH ×3 (09:00→21:04)
[2017-07-25] MEDS: RESTASIS~ORDER AWAITING ACTION SCH ×3 (09:10→16:00)
[2017-07-25] MEDS ORDERED: SUCCINYLCHOLINE CHLORIDE 20 MG/ML 10 ML VIAL IV ONE (09:18)
[2017-07-25] MEDS ORDERED: DEXAMETHASONE SOD INJ 4 MG/ML VIAL ONE (09:19)
[2017-07-25] MEDS ORDERED: ONDANSETRON INJ 2 MG/ML 2 ML VIAL ONE (09:19)
[2017-07-25] MEDS ORDERED: GELATIN SPONGE SZ 100 ONE (09:25)
[2017-07-25] MEDS ORDERED: CIPRO 0.3%/DEXAMETHASONE 0.1% OTIC SUSP 7.5ML ONE (09:31)
[2017-07-25] MEDS ORDERED: HEMADERM ENT APPLICATOR KIT TOP ONE (09:43)
[2017-07-25] MEDS ORDERED: SURGICEL FIBRILLAR HEMOSTAT 1 X 2IN TOP ONE (09:56)
--- NOTE | 2017-07-25 10:10 | [facility] Post Operative Brief Note ---
Immediate Operative Summary Operative Date Jul 25, 2017. 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 Galdamez [employer] Teacher Surgeon(s) None Estimated Blood Loss 50 mL Findings thick fungal material both frontal right maxillary and both sphenoid sinuses Specimens Tissue: A. Fungus ball B. Left ethmoid biopsy Microbiology: 1. Left sphenoid 2. Right maxillary Anesthesia Gen. endotracheal Complication(s) None Disposition Recovery Room / PACU
--- NOTE | 2017-07-25 10:21 | [facility] Operative Report ---
Operative Report Operative Date Jul 25, 2017. 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 Galdamez [employer] Bus Driver Surgeon(s) None Estimated Blood Loss 50 mL Findings Thick fungal mucin both frontal both sphenoid and right maxillary sinus, left ethmoid fungus ball Specimens Tissue: A. Fungus ball B. Left ethmoid biopsy Microbiology: 1. Left sphenoid 2. Right maxillary Anesthesia Gen. endotracheal Complication(s) None Disposition Recovery Room / PACU Indications 72-year-old lady with sinusitis documented on CT scan of 2012 and again in March 2017 with expansile mass of left ethmoid plus opacified frontal sphenoid and right maxillary sinuses developed acute appendectomy sexes requiring hospitalization and blood transfusion Description of Procedure The patient was brought to the operating room placed in the supine position. General endotracheal anesthesia was induced. [email or web address] device was calibrated and used for the entire procedure. After prepping and draping the nose was decongested using topical cottonoids with a solution of 4 mL of 4% Xylocaine mixed with 1 mL of epinephrine. Injection of 2% Xylocaine with 1-100,000 strength epinephrine was also used. The right sphenoid was cannulated with the guidewire with [email or web address] computer guidance and dilated using the 6 mm balloon the guidewire was withdrawn and then then sphenoid sinus was irrigated clean with 60 mL of saline. The left sphenoid sinus was also cannulated dilated and irrigated clean with saline. The right maxillary sinus was cannulated with guidewire and dilated using the 6 mm balloon and irrigated with saline with incomplete evacuation of the right maxillary sinus. The left maxillary sinus was cannulated with the guidewire and dilated using the 6 mm balloon and irrigated clean with saline. The left nasal frontal duct was cannulated with the guidewire with [email or web address] computer guidance and dilated using the 6 mm balloon purulent material was noted. The guidewire was left in place as a marker for frontal sinusotomy. The shaver was used, couple with the VivisimoLab device, to open up the nasal frontal duct by removing the anterior and then the posterior wall of the Manas nasi cell. The bullae ethmoidalis was opened using the [place] sending a part of the fungus ball and mucosa for specimen. Total ethmoidectomy was was performed using the shaver couple with the BrainLab device going through the ground lamella into the posterior ethmoid air cells, delineating the posterior most ethmoid air cell, delineating the skull base superiorly and the lamina papyracea bilaterally, following the structures anteriorly to exonerate all the posterior ethmoid air cells and all the anterior ethmoid air cells up to the previously dilated nasal frontal duct. Thick tenacious mucin was evacuated from all the ethmoid sinuses. At this point the nasal frontal duct was redilated with the 6 mm balloon by introducing the balloon over the guidewire. The guidewire was then removed and the frontal sinus was irrigated clean with 120 mL of saline. With the balloon inflated the contours stent was loaded, and then the balloon was withdrawn and the contours stent was placed into the nasal frontal duct. Attention was turned to the right side, finding the nasal frontal duct difficult to cannulate, opening up the anterior ethmoid air cells with the shaver couple with the BrainLab device, and then the right nasal frontal duct was cannulated with the guidewire with [email or web address] computer guidance and dilated using the 6 mm balloon. At this point frontal sinusotomy and total ethmoidectomy was performed in a similar manner the maxillary sinus had to be opened using the seeker and then the shaver connecting the natural ostia to an accessory ostia. The maxillary sinus was irrigated clean in that it was totally filled with thick fungal mucin. Sphenoid sinuses were opened using the shaver to remove polypoid material at the base of the superior turbinate which is at the anterior face of the sphenoids. Contours stents were placed in the nasal frontal duct and the left ethmoid cavity was packed with a strip of Gelfoam saturated with Ciprodex solution. At this point the left nasal cavity was packed with strips of Gelfoam dipped in Ciprodex solution, and then with hematoma powder, and then with fibrollar collagen nasal packing. The patient her procedure well and was taken recovery are in satisfactory condition. I attest to the content of the Intraoperative Record and any orders documented therein. Any exceptions are noted below.
--- NOTE | 2017-07-25 11:09 | Anesthesiology Progress Note ---
Anesthesia Post Op Note Date & Time Jul 25, 2017 at 11:09 Vital Signs Pain Intensity: 0 Vital Signs Past 12 Hours Date Time Temp Pulse Resp B/P (MAP) Pulse Ox O2 Delivery O2 Flow Rate FiO2 07/25/17 10:45 36.6 104 18 140/68 96 Oxymask 4 07/25/17 10:35 103 17 138/68 94 Oxymask 4 07/25/17 10:25 101 14 146/68 97 Oxymask 10 07/25/17 10:15 106 17 157/73 97 Oxymask 10 07/25/17 10:06 36.2 104 14 153/70 97 Oxymask 10 07/25/17 05:32 95 Room Air 07/24/17 23:25 95 Room Air 07/24/17 23:19 36.7 82 16 131/70 (90) 95 Room Air Notes Mental Status: alert / awake / arousable, participated in evaluation Pt Amnestic to Procedure: Yes Nausea / Vomiting: adequately controlled Pain: adequately controlled Airway Patency, RR, SpO2: stable & adequate BP & HR: stable & adequate Hydration State: stable & adequate Anesthetic Complications: no major complications apparent
[2017-07-25] MEDS: MUPIROCIN 2% OINT 22 GM TUBE EXT SCH ×2 (12:12→21:00)
[2017-07-25] MEDS: AMPICILLIN/SULBACTAM SOD INJ 3,000 MG in SODIUM CHLORIDE 0.9% 100ML 100 ML IV SCH ×3 (12:42→23:51)
--- NOTE | 2017-07-25 13:04 | NUR ---
CWOCN: RECEIVED REQUEST FOR CONSULT, RE: PATIENT HAS REDDENED AREA THAT IS SLIGHTLY OPEN ON SACRUM. FOUND PATIENT WITH MEDIAL SACRUM REDNESS, NOT OPEN, AREA FULLY BLANCHES. THERE ARE 2 SMALL AREAS ON RIGHT BUTTOCKS. MOST DISTAL IS 0.2X0.2CM WITH SUPERFICIAL OPEN, MINOR BLANCHING REDNESS SURROUNDS. PROXIMAL AREA ON RIGHT BUTTOCKS 1.5X1CM WITH 0.2CM SURFACE OPEN. REDNESS SURROUNDING BLANCHES. UNSURE OF CAUSE OF OPEN SKIN. WILL COVER WITH OPTIFOAM GENTLE CHANGING Q3DAYS AND NEEDED. PATIENT IS INCONTINENT, FOUND IN BRIEF. PATIENT DID NOT ALLOW SKIN ASSESSMENT ON ADMISSION, MAY HAVE BEEN PRESENT PRIOR TO ADMISSION. INSTRUCTED RE: NO BRIEFS SECONDARY TO INCREASED RISK FOR PRESSURE ULCERS. WILL ORDER EHOB AIR MATTRESS DESPITE ALLISON SCORE OF 20. PRIMARY NURSE STATES SHE APPLIED PREVENTION DRESSINGS TO BOTH HEELS.
--- NOTE | 2017-07-25 14:17 | NUR ---
Pt screened for WOCN. Please refer to linked assessment Addendum: 07/25/17 at [address] Amended: Links added.
--- NOTE | 2017-07-25 15:05 | Progress Note ---
Subjective Date of Service: Jul 25, 2017. Subjective pt is groggy from her recent sinus surgery, she had packing in place and rhinorocket is removed. sons are at bedside and were already updated by Dr Galdamez Problem List Medical Problems: (1) [place] Status: Acute (2) Aortic Valve Disorder Status: Chronic (3) Closed head injury Status: Acute (4) Diabetes Status: Chronic (5) Facial contusion Status: Acute (6) Hyperlipidemia Nec/Nos Status: Chronic (7) Hypertension Status: Chronic (8) Hypotension Status: Acute (9) Patella fracture Status: Acute (10) Right hip pain Status: Acute (11) Tricuspid Valve Disease Status: Chronic Review of Systems Constitutional: + weakness, + fatigue, No fever, No chills ENT: + problem reported (has nasal packing in place) Respiratory: No cough, No shortness of breath, No dyspnea on exertion Cardiac: No chest pain, No edema Abdomen: No pain, No nausea, No vomiting, No diarrhea Neurologic: No memory loss, No weakness Objective Vital Signs Date Time Temp Pulse Resp B/P (MAP) Pulse Ox O2 Delivery O2 Flow Rate FiO2 07/25/17 14:55 36.6 99 18 115/68 (84) 95 Room Air 07/25/17 13:54 36.3 97 16 140/79 (99) 100 Oxymask 4.0 07/25/17 12:59 96 18 135/72 (93) 93 Oxymask 4.0 07/25/17 12:00 95 18 146/73 (97) 98 07/25/17 11:30 95 18 155/73 (100) 96 Oxymask 4.0 07/25/17 11:00 92 Oxymask 4.0 07/25/17 11:00 36.5 100 18 132/68 (89) 92 Oxymask 4.0 07/25/17 11:00 92 Oxymask 4.0 07/25/17 10:45 36.6 104 18 140/68 96 Oxymask 4 07/25/17 10:35 103 17 138/68 94 Oxymask 4 07/25/17 10:25 101 14 146/68 97 Oxymask 10 07/25/17 10:15 106 17 157/73 97 Oxymask 10 07/25/17 10:06 36.2 104 14 153/70 97 Oxymask 10 07/25/17 05:32 95 Room Air 07/24/17 23:25 95 Room Air 07/24/17 23:19 36.7 82 16 131/70 (90) 95 Room Air 07/24/17 20:50 36.8 86 18 158/71 (100) 96 Room Air 07/24/17 20:50 96 Room Air 07/24/17 20:50 36.8 86 18 158/71 (100) 96 Room Air 07/24/17 20:35 117/62 (80) 07/24/17 19:44 36.6 93 18 86/54 (65) 94 Room Air 07/24/17 16:00 Room Air 07/24/17 15:51 36.6 90 18 121/65 (83) 95 Room Air Physical Exam General Appearance: WD/WN, + mild distress Eyes: normal inspection, sclerae normal Respiratory/Chest: chest non-tender, lungs clear, normal breath sounds Cardiovascular: regular rate, rhythm, no murmur Abdomen: normal bowel sounds, non tender, soft Neurologic/Psychiatric: alert, oriented x 3 Laboratory Results Last 24 Hours Test 07/24/17 16:08 07/24/17 20:30 07/25/17 00:46 07/25/17 05:48 Bedside Glucose 191 mg/dl 187 mg/dl 239 mg/dl White Blood Count 6.71 K/uL Red Blood Count 3.16 M/uL Hemoglobin 9.6 g/dL Hematocrit 28.9 % Mean Corpuscular Volume 91.5 fL Mean Corpuscular Hemoglobin 30.4 pg Mean Corpuscular Hemoglobin Concent 33.2 g/dl RDW Standard Deviation 57.5 fL RDW Coefficient of Variation 17.3 % Platelet Count 105 K/uL Mean Platelet Volume 10.8 fL Activated Partial Thromboplast Time 29.4 SECONDS Partial Thromboplastin Ratio 1.1 Sodium Level 127 mmol/L Potassium Level 4.5 mmol/L Chloride Level 96 mmol/L Carbon Dioxide Level 24 mmol/L Anion Gap 7.0 mmol/L Blood Urea Nitrogen 19 mg/dl Creatinine 0.70 mg/dl Est Creatinine Clear Calc Drug Dose 55.2 ml/min Estimated GFR () 98.9 Estimated GFR (Non- 85.4 BUN/Creatinine Ratio 26.7 Random Glucose 178 mg/dl Calcium Level 8.0 mg/dl Test 07/25/17 06:13 07/25/17 10:21 Bedside Glucose 199 mg/dl 173 mg/dl Assessment and Plan 72-year-old female recurrent massive epistaxis, with past history of hypertension, diabetes this oral hypoglycemic and multiple joint degenerative disease Recurrent significant epistaxis, ENT did take to OR 07/25 only infectious components identified, started on unasyn Hypovolemic shock secondary, Acute blood loss anemia, 2 units blood transfusion now stable Diabetes mellitus on oral hypoglycemic, continues to have high glucose and have started lantus 10 units bid, will transition to oral meds with ssi coverage Multiple joint degenerative disease controlled with Tylenol and Ultram for moderate to severe pain Cardiac murmur/patient is aware Hold of pharmacologic DVT prophylaxis, SCD boots Pressure ulcer right buttock stage 2, with local measures
--- NOTE | 2017-07-25 16:15 | NUR ---
ID: Pt A/O x 4. Denies pain at this time. Min assist in the room with a walker. NSS at 80 in the right wrist. Tolerating RA. Denies cp/sob with insp wheezes. Tolerating a DMT2 diet. Voids in the toilet. Packing in the left nare, a 2x2 drip dressing under the nose with micropore tape. optifoam on the sacrum. Teds and scds. Bed in low and locked position, call hook in reach, pt rings appropriately.
[2017-07-25] MEDS ORDERED: SODIUM CHLORIDE 0.9% 1000ML 1,000 ML IV SCH (16:45)
[2017-07-25] MEDS ORDERED: METFORMIN HCL 500 MG TAB PO SCH (17:45)
[2017-07-25] MEDS ORDERED: SODIUM CHLORIDE 0.9% 500ML 500 ML IV SCH (19:45)
[2017-07-25 20:06] LABS: HEMATOCRIT 28.6 % (37-47); HEMOGLOBIN 9.7 g/dL (12.0-16.0); IG# 0.02 K/uL (0.00-0.02); LYMPH % 2.7 %; LYMPH ABS # 0.27 K/uL (1.2-3.4); MEAN CORPUSCULAR HEMOGLOBIN 31.2 pg (25-34); MEAN PLATELET VOLUME 11.3 fL (7.4-10.4); MONO % 1.6 %; MONO ABS # 0.16 K/uL (0.11-0.59); NEUT % 95.5 %; NEUT ABS # 9.49 K/uL (1.4-6.5); PLATELET COUNT 101 K/uL (130-400); RED CELL DISTRIBUTION WIDTH SD 56.5 fL (36.4-46.3); WHITE BLOOD COUNT 9.94 K/uL (4.8-10.8)
[2017-07-25 20:13] LABS: MEAN CORPUSCULAR HGB CONC 33.9 g/dl (32-36)
[2017-07-25 20:31] LABS: ALBUMIN 2.3 gm/dl (3.4-5.0); CALCIUM 7.5 mg/dl (8.5-10.1); CREATININE 0.91 mg/dl (0.60-1.20); POTASSIUM 4.8 mmol/L (3.5-5.1); TOTAL PROTEIN 6.3 gm/dl (6.4-8.2)
[2017-07-25] MEDS ORDERED: INSULIN ASPART 100 UNITS/ML 3 ML PEN SC SCH (21:00)
[2017-07-26 03:41] VITALS: BP 121/61; PULSE 95; TEMP 36.7; O2SAT 96
[2017-07-26] MEDS: AMPICILLIN/SULBACTAM SOD INJ 3,000 MG in SODIUM CHLORIDE 0.9% 100ML 100 ML IV SCH ×2 (05:54→12:00)
[2017-07-26 07:02] VITALS: BP 145/67; PULSE 99; TEMP 36.5; O2SAT 97
[2017-07-26] MEDS: RESTASIS~ORDER AWAITING ACTION SCH ×2 (08:00)
[2017-07-26] MEDS: INSULIN ASPART 100 UNITS/ML 3 ML PEN SC SCH ×2 (08:21→12:00)
[2017-07-26] MEDS: FERROUS SULFATE 325 MG TAB PO SCH (08:22)
[2017-07-26] MEDS: PANTOprazole SOD 40 MG TAB PO SCH (08:23)
[2017-07-26] MEDS: PRAVASTATIN SOD 20 MG TAB PO SCH (08:23)
[2017-07-26] MEDS ORDERED: METFORMIN HCL 500 MG TAB PO SCH (08:30)
[2017-07-26] MEDS: MUPIROCIN 2% OINT 22 GM TUBE EXT SCH (09:24)
[2017-07-26] MEDS ORDERED: AMOX875T PO (10:59)
--- NOTE | 2017-07-26 11:02 | Discharge Instructions ---
Discharge Instructions Date of Service Jul 26, 2017. Admission Reason for Admission: Epistaxis Discharge Discharge Diagnosis / Problem: chronic sinusitis, epistaxis requiring transfusion Discharge Goals Goal(s): Diagnostic testing, Therapeutic intervention Activity Recommendations Activity Limitations: resume your previous activity Your blood sugars have been a bit high, please be cautious with your diet and follow your blood sugars at home Please follow up with Dr Galdamez . Current Hospital Diet Patient's current hospital diet: Diabetes Type 2 Diet Discharge Diet Recommended Diet: Diabetes Type 2 Diet Procedures Procedures Performed: Right and left frontal sinusotomy, right and left sphenoid sinusotomy, right and left total ethomoid sinusotomy, right and left maxillay sinusotomy, extraction of fungus ball Pending Studies Studies pending at discharge: no Laboratory Results Hemoglobin A1c Test 07/23/17 04:21 Range/Units Estimated Average Glucose 111 mg/dl Hemoglobin A1c 5.5 4.5-5.6 % Medical Emergencies . Who to Call and When: Medical Emergencies: If at any time you feel your situation is an emergency, please call 911 immediately. . Non-Emergent Contact Non-Emergency issues call your: Surgeon ([place]) Call Non-Emergent contact if: temperature is above 101, your pain is unusual for you . . "Provider Documentation" section prepared by Yousif Pandey. . VTE Core Measure Inpt VTE Proph given/why not?: SCD's
[2017-07-26 11:50] VITALS: BP 145/67; PULSE 99; TEMP 36.5; O2SAT 97
--- NOTE | 2017-07-26 13:05 | Discharge Summary ---
Discharge Summary Date of Service Jul 26, 2017. Discharge Summary Admission Date: Jul 22, 2017 at 12:46 Discharge Date: Jul 26, 2017 Discharge Disposition: Home Principal Diagnosis: epistaxis associated with chronic sinusisit, acute blood loss anemia Problems/Secondary Diagnoses: (1) Aortic Valve Disorder Status: Chronic (2) Diabetes Status: Chronic (3) Hyperlipidemia Nec/Nos Status: Chronic (4) Hypertension Status: Chronic (5) Tricuspid Valve Disease Status: Chronic Immunizations: Have You Had Influenza Vaccine: Yes Influenza Vaccine Date: Sep 27, 2009 History of Tetanus Vaccine?: No History of Pneumococcal: No Pneumococcal Date: Sep 27, 2009 History of Hepatitis B Vaccine: No Procedures: Transfusion 2 units PRBC ENT sinus surgery with Dr Castillo Medication Reconciliation New Medications: Amoxicillin & Pot Clavulanate (Augmentin 875-125 mg) 1 Tab Tab 875 MG PO BID, #20 TAB Continued Medications: Cyclosporine (Ophth) (Restasis) 0.05 % Emu 1 DROP OPB Q12 Ferrous Sulfate (Kp Ferrous Sulfate) 325 Mg Tab 325 MG PO TID Fluocinonide (Lidex 0.05% Cream) 90 Appln/30 Gm Cr 1 APPLN TOP DIRECTED Furosemide (Furosemide) 20 Mg Tab 20 MG PO DAILY Glipizide (Glipizide) 5 Mg Tab 5 MG PO BID Lisinopril (Lisinopril) 5 Mg Tab 5 MG PO QAM Loperamide-Simethicone (Imodium Multi-Symptom Rel) 1 Tab Tab 1 TAB PO HS Metformin Hcl (Glucophage) 500 Mg Tab 500 MG PO BID Mupirocin 2% (Bactroban 2%) 30 Gm Cr 1 APPLN EXT BID APPLY TO NOSE Nadolol (Corgard) 20 Mg Tab 20 MG PO QAM Omeprazole (Prilosec) 20 Mg Cap 20 MG PO QAM Oxycodone Hcl (Oxycodone Hcl) 5 Mg Cap 5 MG PO Q4H PRN for Pain Pramoxine Hcl-Zinc Oxide (Tronolane) 1 Cre Cre 1 APPLN TOP DAILY PRN for Hemorrhoids TO HEMORRHOIDS Pravastatin Sod (Pravastatin Sodium) 20 Mg Tab 20 MG PO QAM Discharge Exam Review of Systems: Constitutional: No fever, No chills, No weakness, No fatigue Physical Exam: General Appearance: WD/WN, no apparent distress Respiratory/Chest: chest non-tender, lungs clear, normal breath sounds Neurologic/Psychiatric: alert, oriented x 3 Hospital Course 72-year-old female recurrent massive epistaxis, with past history of hypertension, diabetes this oral hypoglycemic and multiple joint degenerative disease Recurrent significant epistaxis, ENT did take to OR 07/25 gram stain is negative, perhaps chronic inflammation, due to packing will have on Augmentin at discharge Hypovolemic shock secondary, Acute blood loss anemia, 2 units blood transfusion now stable Diabetes mellitus on oral hypoglycemic, continues to have high glucose and will recommend close care at home with contact of pcp if needed Multiple joint degenerative disease controlled with Tylenol and Ultram for moderate to severe pain Cardiac murmur/patient is aware Pressure ulcer right buttock stage 2, with local measures Total Time Spent: Greater than 30 minutes This includes examination of the patient, discharge planning, medication reconciliation, and communication with other providers. Discharge Instructions Please refer to the electronic Patient Visit Report (Discharge Instructions) for additional information.
[2017-12-05] MEDS ORDERED: SALI1SPR15 NAE (11:30)
[2017-12-05] MEDS ORDERED: [UNRECOGNIZED DRUG - OTHER] OPB (11:30)
[2017-12-05] MEDS ORDERED: FERR1TAB23 PO (11:30)
[2017-12-05] MEDS ORDERED: CRG/20 PO (11:30)
[2017-12-05] MEDS ORDERED: CALC500C70 PO (11:30)
[2017-12-05] MEDS ORDERED: GLC/500 PO (11:30)
[2017-12-17] MEDS ORDERED: SALI0.658 NAE (09:03)
[2017-12-17] MEDS ORDERED: VITATAB19 OPB (09:03)
[2017-12-17] MEDS ORDERED: HYPEPOW8 NAE (09:03)
[2017-12-19] MEDS ORDERED: GLIP5TAB11 PO (08:44)
[2017-12-19] MEDS ORDERED: HYDR2.5C37 TOP (08:44)
[2017-12-19] MEDS ORDERED: VITAMIN A OPB (08:44)
[2017-12-19] MEDS ORDERED: BCTROWC EXT (08:44)
[2017-12-19] MEDS ORDERED: LOPE1TAB PO (08:44)
[2017-12-19] MEDS ORDERED: FURO-85 PO (08:44)
[2017-12-19] MEDS ORDERED: POLYSOL OPB (08:44)
[2017-12-19] MEDS ORDERED: OXYC-90 PO (08:44)
[2018-01-02] MEDS ORDERED: ACET-24 PO (17:26)
[2018-01-02] MEDS ORDERED: OXYC-90 PO (17:26)
[2018-01-04] MEDS ORDERED: CRFUDL PO (08:57)
[2018-01-05] MEDS ORDERED: LOPELIQ6 PO (09:57)
[2018-01-05] MEDS ORDERED: QSTP PO (13:05)
[2018-01-05] MEDS ORDERED: VANC5CAP PO (13:05)
[2018-01-26] MEDS ORDERED: ACET-1256 PO (18:19)
[2018-01-26] MEDS ORDERED: MIRT1TAB27 PO (18:25)
[2018-01-26] MEDS ORDERED: SACC250C PO (18:26)
[2018-01-26] MEDS ORDERED: NYST100010 TD (18:28)
[2018-01-26] MEDS ORDERED: ALOEMIS NAE (18:29)
[2018-02-10] MEDS ORDERED: DFC200 PO (10:35)
== END 2017-07-26 13:57 | disposition home or self-care (01) | DRG 135 ==
LOC: C.EDB 08:40 → C.2T 12:46 → ENRESERV 13:16 → CANRESERV 07-24 16:56 → ENRESERV 07-24 16:56 → CANRESERV 07-24 17:09 → ENRESERV 07-24 17:17 → C.MSW 07-24 21:07
PROVIDERS: ADMIT Internal Medicine; ATTEND Internal Medicine
PROC: 099V8ZZ Drainage of Left Ethmoid Sinus, Via Natural or Artificial Opening Endoscopic (ICD-10-PCS; principal; 2017-07-25 07:15)
PROC: 099U8ZZ Drainage of Right Ethmoid Sinus, Via Natural or Artificial Opening Endoscopic (ICD-10-PCS; principal; 2017-07-25 07:15)
PROC: 099X8ZZ Drainage of Left Sphenoid Sinus, Via Natural or Artificial Opening Endoscopic (ICD-10-PCS; principal; 2017-07-25 07:15)
PROC: 099W8ZZ Drainage of Right Sphenoid Sinus, Via Natural or Artificial Opening Endoscopic (ICD-10-PCS; principal; 2017-07-25 07:15)
PROC: 09TV8ZZ Resection of Left Ethmoid Sinus, Via Natural or Artificial Opening Endoscopic (ICD-10-PCS; principal; 2017-07-25 07:15)
PROC: 099 Ear, Nose, Sinus, Drainage (ICD-10-PCS; principal; 2017-07-25 07:15)
PROC: 099Q8ZZ Drainage of Right Maxillary Sinus, Via Natural or Artificial Opening Endoscopic (ICD-10-PCS; principal; 2017-07-25 07:15)
PROC: 099S8ZZ Drainage of Right Frontal Sinus, Via Natural or Artificial Opening Endoscopic (ICD-10-PCS; principal; 2017-07-25 07:15)
PROC: 099R8ZZ Drainage of Left Maxillary Sinus, Via Natural or Artificial Opening Endoscopic (ICD-10-PCS; principal; 2017-07-25 07:15)
PROC: 09TU8ZZ Resection of Right Ethmoid Sinus, Via Natural or Artificial Opening Endoscopic (ICD-10-PCS; principal; 2017-07-25 07:15)
DX: R04.0 Epistaxis (principal); R57.1 Hypovolemic shock; D62 Acute posthemorrhagic anemia; J34.1 Cyst and mucocele of nose and nasal sinus; J32.9 Chronic sinusitis, unspecified; E11.65 Type 2 diabetes mellitus with hyperglycemia; I10 Essential (primary) hypertension; L89.312 Pressure ulcer of right buttock, stage 2; R01.1 Cardiac murmur, unspecified; M19.90 Unspecified osteoarthritis, unspecified site; M48.00 Spinal stenosis, site unspecified; K21.9 Gastro-esophageal reflux disease without esophagitis; Z87.891 Personal history of nicotine dependence; Z79.84 Long term (current) use of oral hypoglycemic drugs; Z79.899 Other long term (current) drug therapy; Z88.1 Allergy status to other antibiotic agents; Z91.041 Radiographic dye allergy status; Z83.3 Family history of diabetes mellitus; Z82.49 Family history of ischemic heart disease and other diseases of the circulatory system; Z80.52 Family history of malignant neoplasm of bladder